=== PATIENT | female | born 1975 | race Caucasian/White ===

== ENCOUNTER 2016-12-21 12:22 | Emergency (ER) | payer OTHER, SELFPAY ==
[~2016-12-21 12:22] MED LIST: Sodium Chloride 0.9% 100 ML BAG ONE
[2016-12-21] MEDS ORDERED: Lorazepam 2 MG/ML VIAL ONE (12:50)
[2016-12-21] MEDS ORDERED: Famotidine In NaCl 20 mg/50 ml Premix Bag ONE (12:50)
[2016-12-21] MEDS ORDERED: Ondansetron HCl/PF 4 MG/2 ML Vial ONE (12:50)
[2016-12-21] MEDS ORDERED: Metoprolol Tartrate 5 MG/5 ML VIAL ONE (12:50)
--- NOTE | 2016-12-21 13:08 | RAD ---
PORTABLE CHEST: Date: 12/21/16 Time: 1236 hours HISTORY: Chest pain. FINDINGS: Comparison made with exam of 07/09/13. The heart size is normal. The lungs are well expanded without focal areas of consolidation, pneumoth orax, or pleural effusions. IMPRESSION: No acute process. POS: [facility]
[2016-12-21 13:09] LABS: Anion Gap 19 mmol/L (10-20); BUN (Urea Nitrogen) 12 mg/dL (7.0-18.7); Calc. Creatinine Clearance 0 mL/min (70-130); Calcium 9.1 mg/dL (7.8-10.44); Carbon Dioxide 20 mmol/L (22-29); Chloride 102 mmol/L (98-107); Estimated GFR-MDRD 75; Glucose 164 mg/dL (70-105); Sodium 137 mmol/L (136-145)
[2016-12-21 13:10] LABS: Hemoglobin 14.3 g/dL (12.0-16.0); Mean Corpuscular HGB CONC 34.5 g/dL (32.0-36.0); Mean Corpuscular Hemoglobin 32.2 pg (27.0-31.0); Mean Corpuscular Volume 93.3 fl (81.0-99.0); Mean Platelet Volume 9.4 fL (7.4-10.4); Platelet Count 317 thou/uL (130-400); Red Blood Cell (RBC) Count 4.43 mill/uL (4.20-5.40); White Blood Cell (WBC) Count 10.4 thou/uL (4.8-10.8)
[2016-12-21 13:12] LABS: Band 2 % (5-11); Lymphocytes 26 % (21-51); Manual Diff?? YES; Monocytes 3 % (0-10); Neutrophil 69 % (42-75)
[2016-12-21 13:13] LABS: MDiff Complete? YES
[2016-12-21 13:19] LABS: CKMB 0.7 ng/mL (0-6.6); Troponin I Less than 0.010 ng/mL (< 0.028)
[2016-12-21 13:31] LABS: Potassium 4.4 mmol/L (3.5-5.1)
[2016-12-21 14:30] LABS: Bilirubin Negative (Negative); Blood, Urine Trace (Negative); Clarity Clear (Clear); Glucose, Urine (Dipstick) Negative (Negative); Leukocyte Trace (Negative); Nitrite Positive (Negative); Protein, Urine (Dipstick) Negative (Neg-Trace); Specific Gravity, Urine 1.025 (1.005-1.030); Urobilinogen 0.2 mg/dL (0.2-1.0); pH, Urine 6.5 (5.0-9.0)
[2016-12-21 14:34] LABS: Bacteria/HPF 1+ HPF (None Seen); Other Microscopic Description C&S SET UP; RBC/HPF 0-3 HPF (0-3); Squamous Epithelial 0-3 HPF (0-3)
[2016-12-21] MEDS ORDERED: cefTRIAXone\\ROCEPHIN 1 GM VIAL ONE (15:30)
[2016-12-21] MEDS ORDERED: Enoxaparin Sodium 60 MG/0.6 ML SYRINGE ONE (16:16)
[2016-12-21] MEDS ORDERED: Enoxaparin Sodium 40 MG/0.4 ML SYRINGE ONE (16:16)
--- NOTE | 2016-12-21 16:59 | ERRECORD ---
[facility] EMERGENCY RECORD HPI CHEST PAIN (12:40 RWAG) CHIEF COMPLAINT: Patient presents for evaluation of chest pain, ongoing. HISTORIAN: History provided by patient. LOCATION: Symptoms are localized, most severe in the left upper chest. QUALITY: Unable to describe the quality of the pain. SEVERITY: Maximum severity of symptoms mild, Currently symptoms are mild. TIME COURSE: Patient unable to describe onset of symptoms, There has been no change in the patient's symptoms over time. ASSOCIATED WITH: No associated symptoms. EXACERBATED BY: Patient's condition exacerbated by nothing. RELIEVED BY: Patient's condition relieved by nothing because patient has not tried anything for relief. RISK FACTORS: Coronary artery disease risk factors, include hypertension, Thoracic aortic dissection risk factors, include hypertension, No pulmonary embolism risk factors. ROS (12:42 RWAG) CONSTITUTIONAL: Negative constitutional review of systems. EYES: Negative eye review of systems. ENT: Negative ears, nose, throat review of systems. CARDIOVASCULAR: Historian reports chest pain. RESPIRATORY: Negative respiratory review of systems. GI: Negative gastrointestinal review of systems. GENITOURINARY FEMALE: Negative genitourinary review of systems. MUSCULOSKELETAL: Negative musculoskeletal review of systems. SKIN: Negative skin review of systems. NEUROLOGIC: Negative neurologic review of systems. ENDOCRINE: Negative endocrine review of systems. HEMO/LYMPHATIC: Normal hematologic/lymphatic system review. ALLERGIC/IMMUNOLOGIC: Normal allergy/immunologic system review. PSYCHIATRIC: Historian reports anxiety. PAST MEDICAL HISTORY (13:08 SFRE) MEDICAL HISTORY: Past medical history includes pulmonary disease, chronic obstructive pulmonary disease, Notes: GRAVES DISEASE. FEMALE SURGICAL HISTORY: Surgical history of section, Notes: X3, Surgical history of tubal ligation. PSYCHIATRIC HISTORY: Notes: ANXIETY PER PATIENT. SOCIAL HISTORY: Patient currently uses tobacco, Patient smokes cigarettes, Patient smokes 1 pack per day, 19 YEARS SMOKING HISTORY Patient denies alcohol use, Patient denies drug use,. KNOWN ALLERGIES No Allergy Information Available (Unconfirmed) &a-1R&a+25V*p+0X*x1568P*c202B*c15G*c2P*p-0X&a-25V&a+1R Name: Ruthie Larios : 1975 F41 MedRec: [id number] AcctNum: [id number] Prepared: SatDec 21, 2016 16:29 by Interface Page 1 of 4 pMD [facility] EMERGENCY RECORD Sulfa (Sulfonamide Antibiotics): - Entered category: Sulfa (Sulfonamide Antibiotics) -- Entered category: Sulfa (Sulfonamide Antibiotics) -- Entered category: Sulfa (Sulfonamide Antibiotics) -- Entered category: Sulfa (Sulfonamide Antibiotics) -- Entered category: Sulfa (Sulfonamide Antibi CURRENT MEDICATIONS (12:28 SFRE) None VITAL SIGNS VITAL SIGNS: BP: 160/83, Pulse: 81, Resp: 24, Temp: 100.5 (Tympanic), Pain: 10 (Sharp), O2 sat: 98 on Room Air, Time: 12/21/2016 12:27. (12:27 SFRE) Pain: 8, Time: 12/21/2016 14:09. (14:09 SFRE) Pain: 8, Time: 12/21/2016 14:09. (14:09 SFRE) Temp: 97.3 (Tympanic), Time: 12/21/2016 14:13. (14:13 SFRE) BP: 130/81, Pulse: 69, Resp: 14, Temp: 97.3 (Tympanic), Pain: 8, O2 sat: 97 on Room Air, Time: 12/21/2016 14:00. (14:00 SFRE) PHYSICAL EXAM (12:43 RWAG) CONSTITUTIONAL: Vital Signs Reviewed, Blood pressure, hypertensive, Respiratory rate, increased. HEAD: Head exam normal. EYES: Eye exam normal. ENT: ENT exam normal. NECK: Neck exam normal. RESPIRATORY CHEST: Respiratory and chest exam normal. CARDIOVASCULAR: Cardiovascular assessment normal. ABDOMEN FEMALE: Abdominal exam normal. BACK: Back exam normal. UPPER EXTREMITY: Upper extremity exam normal. LOWER EXTREMITY: Lower extremity exam normal. NEURO: Neuro exam normal. SKIN: Skin exam normal. LYMPHATIC: Lymphatic exam normal. PSYCHIATRIC: Psychiatric exam included findings of patient oriented to person place and time, Affect, agitated. EKG INTERPRETATION (12:40 RWAG) 12 LEAD EKG INTERPRETATION: 12 lead EKG interpreted by Emergency Department Physician at time of study, 12 lead EKG shows normal sinus rhythm, Rate (beats per minute): 76, with no ectopics, No previous EKG available for comparison, T waves normal, [place] normal, Clinical impression:, non-specific EKG. MEDICATION ADMINISTRATION SUMMARY Drug Name: Lovenox, Dose Ordered: 1 mg/kg, Route: Subcutaneous, &a-1R&a+25V*p+0X*i5111V*c202B*c15G*c2P*p-0X&a-25V&a+1R Name: Ruthie Larios : 1975 F41 MedRec: [id number] AcctNum: [id number] Prepared: SatDec 21, 2016 16:29 by Interface Page 2 of 4 pMD [facility] EMERGENCY RECORD Status: Given, Time: 16:21 12/21/2016, Drug Name: Rocephin intravenous, Dose Ordered: 1 g, Route: IV Piggy Back, Status: Given, Time: 15:35 12/21/2016, Drug Name: morphine injection, Dose Ordered: 4 mg, Route: IV Push, Status: Given, Time: 13:44 12/21/2016, Drug Name: famotidine (PF), Dose Ordered: 20 mg, Route: IV Push, Status: Given, Time: 13:04 12/21/2016, Drug Name: aspirin oral, Dose Ordered: 324 mg, Route: Oral, Status: Given, Time: 13:04 12/21/2016, Drug Name: morphine injection, Dose Ordered: 4 mg, Route: IV Push, Status: Given, Time: 13:03 12/21/2016, Drug Name: ondansetron HCl intravenous, Dose Ordered: 8 mg, Route: IV Push, Status: Given, Time: 13:02 12/21/2016, Drug Name: Ativan injection, Dose Ordered: 1 mg, Route: IV Push, Status: Given, Time: 13:02 12/21/2016, Detailed record available in Medication Service section. DOCTOR NOTES TEXT: Pt's chest pain very atypical and vaugue in location. Pt tearful and anxious, suspect anxiety is a large aspect of her complaint. (15:26 RWAG) repeat EKG shows 1.5mm elevation in inferior leads. Pt chest pain free at present. Two serial troponins have been normal. Will transfer to [facility] for Cardiology consult and r/o OR. (15:56 RWAG) PROBLEM LIST No recorded problems DIAGNOSIS (15:54 RWAG) FINAL: PRIMARY: CHEST PAIN UNSPECIFIED, ADDITIONAL: Anxiety, UTI. PRESCRIPTION (15:25 RWAG) Cipro tablet: TABLET : 500 mg : ORAL : Quantity: 1 Unit: tab(s) Route: ORAL Schedule: every 12 hours Dispense: 14 Unit: tab(s) May substitute. Refills: No Refills . NOTES: No Refills. Ultram: TABLET : 50 mg : ORAL : Quantity: 2 Unit: tab(s) Route: ORAL Schedule: every 6 hours PRN Dispense: 20 Unit: tab(s) May substitute. Refills: No Refills . NOTES: No Refills. DISPOSITION PATIENT: Disposition Type: Discharge, Disposition: *Discharge Home, Disposition Transport: Car, Condition: Improved. (15:28 RWAG) Disposition Type: Transfer, Disposition: Transfer to [facility]. (15:54 RWAG) Patient left the department. (16:27 SFRE) Mims: &a-1R&a+25V*p+0X*b6686V*c202B*c15G*c2P*p-0X&a-25V&a+1R Name: Ruthie Larios : 1975 F41 MedRec: [id number] AcctNum: [id number] Prepared: SatDec 21, 2016 16:29 by Interface Page 3 of 4 pMD [facility] EMERGENCY RECORD RWAG=MD Micha, Noel SFRE=IRA Larose, Carmina &a-1R&a+25V*p+0X*k3357W*c202B*c15G*c2P*p-0X&a-25V&a+1R Name: Ruthie Larios : 1975 F41 MedRec: [id number] AcctNum: [id number] Prepared: SatDec 21, 2016 16:29 by Interface Page 4 of 4 pMD MTDD
--- NOTE | 2016-12-21 17:02 | ERRECORD ---
[facility] EMERGENCY RECORD HPI CHEST PAIN (12:40 RWAG) CHIEF COMPLAINT: Patient presents for evaluation of chest pain, ongoing. HISTORIAN: History provided by patient. LOCATION: Symptoms are localized, most severe in the left upper chest. QUALITY: Unable to describe the quality of the pain. SEVERITY: Maximum severity of symptoms mild, Currently symptoms are mild. TIME COURSE: Patient unable to describe onset of symptoms, There has been no change in the patient's symptoms over time. ASSOCIATED WITH: No associated symptoms. EXACERBATED BY: Patient's condition exacerbated by nothing. RELIEVED BY: Patient's condition relieved by nothing because patient has not tried anything for relief. RISK FACTORS: Coronary artery disease risk factors, include hypertension, Thoracic aortic dissection risk factors, include hypertension, No pulmonary embolism risk factors. ROS (12:42 RWAG) CONSTITUTIONAL: Negative constitutional review of systems. EYES: Negative eye review of systems. ENT: Negative ears, nose, throat review of systems. CARDIOVASCULAR: Historian reports chest pain. RESPIRATORY: Negative respiratory review of systems. GI: Negative gastrointestinal review of systems. GENITOURINARY FEMALE: Negative genitourinary review of systems. MUSCULOSKELETAL: Negative musculoskeletal review of systems. SKIN: Negative skin review of systems. NEUROLOGIC: Negative neurologic review of systems. ENDOCRINE: Negative endocrine review of systems. HEMO/LYMPHATIC: Normal hematologic/lymphatic system review. ALLERGIC/IMMUNOLOGIC: Normal allergy/immunologic system review. PSYCHIATRIC: Historian reports anxiety. PAST MEDICAL HISTORY (13:08 SFRE) MEDICAL HISTORY: Past medical history includes pulmonary disease, chronic obstructive pulmonary disease, Notes: GRAVES DISEASE. FEMALE SURGICAL HISTORY: Surgical history of section, Notes: X3, Surgical history of tubal ligation. PSYCHIATRIC HISTORY: Notes: ANXIETY PER PATIENT. SOCIAL HISTORY: Patient currently uses tobacco, Patient smokes cigarettes, Patient smokes 1 pack per day, 19 YEARS SMOKING HISTORY Patient denies alcohol use, Patient denies drug use,. KNOWN ALLERGIES No Allergy Information Available (Unconfirmed) &a-1R&a+25V*p+0X*v4332Z*c202B*c15G*c2P*p-0X&a-25V&a+1R Name: Ruthie Larios : 1975 F41 MedRec: [id number] AcctNum: [id number] Prepared: SatDec 21, 2016 17:29 by Interface Page 1 of 4 pMD [facility] EMERGENCY RECORD Sulfa (Sulfonamide Antibiotics): - Entered category: Sulfa (Sulfonamide Antibiotics) -- Entered category: Sulfa (Sulfonamide Antibiotics) -- Entered category: Sulfa (Sulfonamide Antibiotics) -- Entered category: Sulfa (Sulfonamide Antibiotics) -- Entered category: Sulfa (Sulfonamide Antibi CURRENT MEDICATIONS (12:28 SFRE) None VITAL SIGNS VITAL SIGNS: BP: 160/83, Pulse: 81, Resp: 24, Temp: 100.5 (Tympanic), Pain: 10 (Sharp), O2 sat: 98 on Room Air, Time: 12/21/2016 12:27. (12:27 SFRE) Pain: 8, Time: 12/21/2016 14:09. (14:09 SFRE) Pain: 8, Time: 12/21/2016 14:09. (14:09 SFRE) Temp: 97.3 (Tympanic), Time: 12/21/2016 14:13. (14:13 SFRE) BP: 130/81, Pulse: 69, Resp: 14, Temp: 97.3 (Tympanic), Pain: 8, O2 sat: 97 on Room Air, Time: 12/21/2016 14:00. (14:00 SFRE) PHYSICAL EXAM (12:43 RWAG) CONSTITUTIONAL: Vital Signs Reviewed, Blood pressure, hypertensive, Respiratory rate, increased. HEAD: Head exam normal. EYES: Eye exam normal. ENT: ENT exam normal. NECK: Neck exam normal. RESPIRATORY CHEST: Respiratory and chest exam normal. CARDIOVASCULAR: Cardiovascular assessment normal. ABDOMEN FEMALE: Abdominal exam normal. BACK: Back exam normal. UPPER EXTREMITY: Upper extremity exam normal. LOWER EXTREMITY: Lower extremity exam normal. NEURO: Neuro exam normal. SKIN: Skin exam normal. LYMPHATIC: Lymphatic exam normal. PSYCHIATRIC: Psychiatric exam included findings of patient oriented to person place and time, Affect, agitated. EKG INTERPRETATION (12:40 RWAG) 12 LEAD EKG INTERPRETATION: 12 lead EKG interpreted by Emergency Department Physician at time of study, 12 lead EKG shows normal sinus rhythm, Rate (beats per minute): 76, with no ectopics, No previous EKG available for comparison, T waves normal, [place] normal, Clinical impression:, non-specific EKG. MEDICATION ADMINISTRATION SUMMARY Drug Name: Lovenox, Dose Ordered: 1 mg/kg, Route: Subcutaneous, &a-1R&a+25V*p+0X*y6333G*c202B*c15G*c2P*p-0X&a-25V&a+1R Name: Ruthie Larios : 1975 F41 MedRec: [id number] AcctNum: [id number] Prepared: SatDec 21, 2016 17:29 by Interface Page 2 of 4 pMD [facility] EMERGENCY RECORD Status: Given, Time: 16:21 12/21/2016, Drug Name: Rocephin intravenous, Dose Ordered: 1 g, Route: IV Piggy Back, Status: Given, Time: 15:35 12/21/2016, Drug Name: morphine injection, Dose Ordered: 4 mg, Route: IV Push, Status: Given, Time: 13:44 12/21/2016, Drug Name: famotidine (PF), Dose Ordered: 20 mg, Route: IV Push, Status: Given, Time: 13:04 12/21/2016, Drug Name: aspirin oral, Dose Ordered: 324 mg, Route: Oral, Status: Given, Time: 13:04 12/21/2016, Drug Name: morphine injection, Dose Ordered: 4 mg, Route: IV Push, Status: Given, Time: 13:03 12/21/2016, Drug Name: ondansetron HCl intravenous, Dose Ordered: 8 mg, Route: IV Push, Status: Given, Time: 13:02 12/21/2016, Drug Name: Ativan injection, Dose Ordered: 1 mg, Route: IV Push, Status: Given, Time: 13:02 12/21/2016, Detailed record available in Medication Service section. DOCTOR NOTES TEXT: Pt's chest pain very atypical and vaugue in location. Pt tearful and anxious, suspect anxiety is a large aspect of her complaint. (15:26 RWAG) repeat EKG shows 1.5mm elevation in inferior leads. Pt chest pain free at present. Two serial troponins have been normal. Will transfer to [facility] for Cardiology consult and r/o PA. (15:56 RWAG) PROBLEM LIST No recorded problems DIAGNOSIS (15:54 RWAG) FINAL: PRIMARY: CHEST PAIN UNSPECIFIED, ADDITIONAL: Anxiety, UTI. PRESCRIPTION (15:25 RWAG) Cipro tablet: TABLET : 500 mg : ORAL : Quantity: 1 Unit: tab(s) Route: ORAL Schedule: every 12 hours Dispense: 14 Unit: tab(s) May substitute. Refills: No Refills . NOTES: No Refills. Ultram: TABLET : 50 mg : ORAL : Quantity: 2 Unit: tab(s) Route: ORAL Schedule: every 6 hours PRN Dispense: 20 Unit: tab(s) May substitute. Refills: No Refills . NOTES: No Refills. DISPOSITION PATIENT: Disposition Type: Discharge, Disposition: *Discharge Home, Disposition Transport: Car, Condition: Improved. (15:28 RWAG) Disposition Type: Transfer, Disposition: Transfer to [facility]. (15:54 RWAG) Patient left the department. (16:27 SFRE) Mims: &a-1R&a+25V*p+0X*d3726W*c202B*c15G*c2P*p-0X&a-25V&a+1R Name: Ruthie Larios : 1975 F41 MedRec: [id number] AcctNum: [id number] Prepared: SatDec 21, 2016 17:29 by Interface Page 3 of 4 pMD [facility] EMERGENCY RECORD RWAG=MD Micha, Noel SFRE=IRA Larose, Carmina &a-1R&a+25V*p+0X*o3505R*c202B*c15G*c2P*p-0X&a-25V&a+1R Name: Ruthie Larios : 1975 F41 MedRec: [id number] AcctNum: [id number] Prepared: SatDec 21, 2016 17:29 by Interface Page 4 of 4 pMD MTDD
--- NOTE | 2016-12-21 17:05 | PICIS ---
[facility] EMERGENCY RECORD COMMUNICATIONS COMMUNICATIONS: Notes: DR MUSE CONSULTED DR ROONEY BY PHONE. RECCOMENDATIONS GIVEN FOR LOVENOX THEN TRANSFER TO [facility] ER. (16:03 AWAT) Notes: DR VALLEJO AT [facility] ER ACCEPTS PT FOR TRANSFER NOW. (16:07 AWAT) TRIAGE (12:28 SFRE) TRIAGE NOTES: CHEST PAIN. (12:28 SFRE) PATIENT: NAME: Ruthie Larios, AGE: 41, GENDER: female, : Sat1975, TIME OF GREET: SatDec 21, 2016 12:23, PREFERRED LANGUAGE: Lao, ETHNICITY: Not or , FALL RISK: NO, ECODE BILLING MAP: [facility], SSN: [id number], Zip Code: [address], KG WEIGHT: [phone], PHONE: , , , PERSON ID: [id number], PCP: NO PCP. (12:28 SFRE) COMPLAINT: HIGH RISK COMPLAINT: CHEST PAIN. (12:28 SFRE) ADMISSION: URGENCY: 3 Urgent, ADMISSION SOURCE: Home, TRANSPORT: Walk-in, BED: ED -05. (12:28 SFRE) ASSESSMENT: Symptoms began 12/21/2016 0900, Symptoms began 4 hours ago. (13:08 SFRE) PAIN: Patient complains of pain described as, sharp, Location LEFT CHEST, Pain is constant, Onset was 0900, No aggravating factors, No relieving factors, Notes: PATIENT STATES SHE TOOK 1/4 OF 325 ASA. (13:08 SFRE) IMMUNIZATIONS: Flu vaccine not up to date. (13:08 SFRE) SIRS SCORING: Heart Rate 55-109 (0), Temp range 96.8-101.1 (0), respiratory rate 12-24 (0), Mental Status altered: no (0). (13:08 SFRE) TRIAGE SCREENING: Patient denies suicidal ideation, Patient denies presence of domestic violence. (13:08 SFRE) PROVIDERS: TRIAGE NURSE: Carmina Larose RN. (12:28 SFRE) PREVIOUS VISIT ALLERGIES: Sulfa (Sulfonamide Antibiotics). (12:28 SFRE) Sulfa (Sulfonamide Antibiotics). (13:08 SFRE) KNOWN ALLERGIES No Allergy Information Available (Unconfirmed) Sulfa (Sulfonamide Antibiotics): - Entered category: Sulfa (Sulfonamide Antibiotics) -- Entered category: Sulfa (Sulfonamide Antibiotics) -- Entered category: Sulfa (Sulfonamide Antibiotics) -- Entered category: Sulfa (Sulfonamide Antibiotics) -- Entered category: Sulfa (Sulfonamide Antibi CURRENT MEDICATIONS (12:28 SFRE) None VITAL SIGNS VITAL SIGNS: BP: 160/83, Pulse: 81, Resp: 24, Temp: 100.5 &a-1R&a+25V*p+0X*y5065N*c202B*c15G*c2P*p-0X&a-25V&a+1R Name: Ruthie Larios : 1975 F41 MedRec: [id number] AcctNum: [id number] Prepared: SatDec 21, 2016 17:35 by Interface Page 1 of 14 pMD [facility] EMERGENCY RECORD (Tympanic), Pain: 10 (Sharp), O2 sat: 98 on Room Air, Time: 12/21/2016 12:27. (12:27 SFRE) Pain: 8, Time: 12/21/2016 14:09. (14:09 SFRE) Pain: 8, Time: 12/21/2016 14:09. (14:09 SFRE) Temp: 97.3 (Tympanic), Time: 12/21/2016 14:13. (14:13 SFRE) BP: 130/81, Pulse: 69, Resp: 14, Temp: 97.3 (Tympanic), Pain: 8, O2 sat: 97 on Room Air, Time: 12/21/2016 14:00. (14:00 SFRE) NURSING ASSESSMENT: CARDIOVASCULAR (12:28 SFRE) CONSTITUTIONAL: Patient arrives ambulatory, Gait steady, History obtained from patient, Patient appears, anxious, in distress due to pain, Patient cooperative, Patient alert, Oriented to person, place and time, Skin warm, Skin dry, Skin normal in color, Mucous membranes pink, Mucous membranes moist, Patient is well-groomed, Patient complains of CHEST PAIN. PAIN: sharp pain, to the left chest, Pain radiates, to the left arm, to the left side of jaw, on a scale 0-10 patient rates pain as 10, Pain exacerbated by nothing, Nothing has been tried to alleviate the pain. CARDIOVASCULAR: Cardiovascular assessment findings include heart rate normal, Heart rhythm normal sinus, Associated with dyspnea, with exertion. RESPIRATORY/CHEST: Breath sounds clear, Respiratory assessment findings include respiratory effort easy, Respirations regular, Conversing normally, Neck and chest exam findings include trachea midline, Chest expansion equal, Chest movement symmetrical, no associated cough noted, no associated fever. SAFETY: Side rails up, Cart/Stretcher in lowest position, Call light within reach, Hospital ID band on. NURSING PROCEDURE: BEDSIDE RADIOLOGY (12:[address] [facility]) PATIENT IDENTIFIER: Patient actively involved in identification process, Patient's identity verified by patient stating name, Patient's identity verified by patient stating date. BEDSIDE RADIOLOGY: Portable chest x-ray performed. NOTES: Patient tolerated procedure well. SAFETY: Side rails up, Cart/Stretcher in lowest position, Family at bedside, Call light within reach, Hospital ID band on. NURSING PROCEDURE: CROP AND SOIL TECHNICIAN (12:28 [facility]) CROP AND SOIL TECHNICIAN: Cardiac monitoring indicated for complaint of chest pain, Patient placed on pan dumper, Heart rate: 81, showing normal sinus rhythm, Patient placed on non-invasive blood pressure monitor, Patient placed on continuous pulse oximetry, Adult/pediatric oxisensor applied, Oxygen saturation 98%. NURSING PROCEDURE: EKG CHART (12:[address] [facility]) PATIENT IDENTIFIER: Patient actively involved in identification &a-1R&a+25V*p+0X*j9246C*c202B*c15G*c2P*p-0X&a-25V&a+1R Name: Ruthie Larios : 1975 F41 MedRec: [id number] AcctNum: [id number] Prepared: SatDec 21, 2016 17:35 by Interface Page 2 of 14 pMD [facility] EMERGENCY RECORD process, Patient's identity verified by patient stating name, Patient's identity verified by patient stating date. EKG: EKG indicated for complaint of chest pain, 12 lead EKG performed on the left chest, done by NAS ROTH, first EKG. FOLLOW-UP: After procedure, EKG for interpretation given to Dr. MUSE. NOTES: Patient tolerated procedure well. SAFETY: Side rails up, Cart/Stretcher in lowest position, Family at bedside, Call light within reach, Hospital ID band on. NURSING PROCEDURE: IV (12:30 SFRE) IV SITE 1: IV therapy indicated for hydration, IV therapy indicated for medication administration, IV established, to the left hand, using a 20 gauge catheter, in one attempt, Saline lock established, Flushed with normal saline (mls): 5CC, Labs drawn at time of placement, labeled in the presence of the patient and sent to lab. NURSING PROCEDURE: NURSE NOTES NURSES NOTES: Patient is improving, Patient in no apparent distress, Patient resting quietly, Notes: REPORTS PAIN IS 8/[address] MUSE INFORMED AND NEW ORDERS REC'D FOR 4MG MORPHINE IVP. (13:40 SFRE) Patient in no apparent distress, Patient states decreased pain, Patient resting quietly, Notes: PATIENT APPEARS TO BE IN NO APPARENT DISTRESS, BUT STATES HER PAIN IS STILL 8/10. ALSO REPORTS PAIN HAS MOVED FROM LEFT CHEST TO UNDERNEATH RIGHT BREAST AND MATTHEW NECK. (14:03 SFRE) Patient assisted to bathroom with steady gait. (14:13 SFRE) NURSING PROCEDURE: TRANSFER (16:22 SFRE) TRANSFER: Reason for transfer need for specialized care, Diagnosis: CP/RO, Accepting institution: [facility], Accepting physician: CONY, Referring physician: MCIHA, Transported by urgent ambulance, accompanied by emergency medical services personnel, Report called to receiving facility, [facility], Summary of Care printed, Copy of patient record prepared for receiving facility, Medication reconciliation form prepared and sent to receiving facility, Patient consent for transfer signed, Family member contacted, BY SELF. SAFETY: Side rails up, Cart/Stretcher in lowest position, Family at bedside, Call light within reach, Hospital ID band on. NURSING PROCEDURE: URINE COLLECTION (14:15 SFRE) URINE COLLECTION FEMALE: Urine collected by mid-stream clean catch. ORDER DETAILS Order Name: B type Natriuretic Peptide, Status: Active, Time: 12:37 &a-1R&a+25V*p+0X*o5838B*c202B*c15G*c2P*p-0X&a-25V&a+1R Name: Ruthie Larios : 1975 F41 MedRec: [id number] AcctNum: [id number] Prepared: SatDec 21, 2016 17:35 by Interface Page 3 of 14 pMD [facility] EMERGENCY RECORD 12/21/2016, User: NYASIA, - Ordered for: MD Muse Richard, - Entered by: MD Muse Richard - SatDec 21, 2016 12:37, - Quantity: 1, Order Name: Basic Metabolic Panel, Status: Active, Time: 12:37 12/21/2016, User: NYASIA, - Ordered for: MD Muse Richard, - Entered by: MD Muse Richard - SatDec 21, 2016 12:37, - Quantity: 1, Order Name: Cardiac Profile w/CKMB & Troponin - I, Status: Active, Time: 12:37 12/21/2016, User: NYASIA, - Ordered for: MD Muse Richard, - Entered by: MD Muse Richard - SatDec 21, 2016 12:37, - Quantity: 1, Order Name: CBC with Differential, Status: Active, Time: 12:37 12/21/2016, User: NYASIA, - Ordered for: MD Muse Richard, - Entered by: MD Muse Richard - SatDec 21, 2016 12:37, - Quantity: 1, Order Name: Culture, Urine, Status: Active, Time: 13:10 12/21/2016, User: NYASIA, - Ordered for: MD Muse Richard, - Entered by: MD Muse Richard - SatDec 21, 2016 13:10, - Quantity: 1, Order Name: D-Dimer (Quantitative), Status: Active, Time: 12:37 12/21/2016, User: NYASIA, - Ordered for: MD Muse Richard, - Entered by: MD Muse Richard - SatDec 21, 2016 12:37, - Quantity: 1, Order Name: EKG 12 Lead in Emergency Room, Status: Active, Time: 12:37 12/21/2016, User: NYASIA, - Ordered for: MD Muse Richard, - Entered by: MD Muse Richard - SatDec 21, 2016 12:37, - Quantity: 1, Order Name: EKG 12 Lead in Emergency Room, Status: Active, Time: 14:24 12/21/2016, User: NYASIA, - Ordered for: MD Muse Richard, - Entered by: MD Muse Richard - SatDec 21, 2016 14:24, - Quantity: 1, Order Name: SALINE LOCK, Status: Done, Time: 12:40 12/21/2016, User: FRANCISCO, - Ordered for: MD Muse Richard, - Entered by: MD Muse Richard - SatDec 21, 2016 12:37, - Quantity: 1, Order Name: Troponin - I, Status: Active, Time: 14:41 12/21/2016, User: NYASIA, - Ordered for: MD Muse Richard, - Entered by: MD Muse Richard - SatDec 21, 2016 14:41, - Quantity: 1, Order Name: Urinalysis w/ Rflx Microscopic, Status: Active, Time: &a-1R&a+25V*p+0X*b5847R*c202B*c15G*c2P*p-0X&a-25V&a+1R Name: Ruthie Larios : 1975 F41 MedRec: [id number] AcctNum: [id number] Prepared: SatDec 21, 2016 17:35 by Interface Page 4 of 14 pMD [facility] EMERGENCY RECORD 13:10 12/21/2016, User: NYASIA, - Ordered for: MD Muse Richard, - Entered by: MD Muse Richard - SatDec 21, 2016 13:10, - Quantity: 1, Order Name: XR Chest 1 View Portable, Status: Active, Time: 12:37 12/21/2016, User: NYASIA, - Ordered for: MD Muse Richard, - Entered by: MD Muse Richard - SatDec 21, 2016 12:37, - Quantity: 1. MEDICATION ADMINISTRATION SUMMARY Drug Name: Lovenox, Dose Ordered: 1 mg/kg, Route: Subcutaneous, Status: Given, Time: 16:21 12/21/2016, Drug Name: Rocephin intravenous, Dose Ordered: 1 g, Route: IV Piggy Back, Status: Given, Time: 15:35 12/21/2016, Drug Name: morphine injection, Dose Ordered: 4 mg, Route: IV Push, Status: Given, Time: 13:44 12/21/2016, Drug Name: famotidine (PF), Dose Ordered: 20 mg, Route: IV Push, Status: Given, Time: 13:04 12/21/2016, Drug Name: aspirin oral, Dose Ordered: 324 mg, Route: Oral, Status: Given, Time: 13:04 12/21/2016, Drug Name: morphine injection, Dose Ordered: 4 mg, Route: IV Push, Status: Given, Time: 13:03 12/21/2016, Drug Name: ondansetron HCl intravenous, Dose Ordered: 8 mg, Route: IV Push, Status: Given, Time: 13:02 12/21/2016, Drug Name: Ativan injection, Dose Ordered: 1 mg, Route: IV Push, Status: Given, Time: 13:02 12/21/2016, Detailed record available in Medication Service section. MEDICATION SERVICE aspirin oral: Order: aspirin oral (aspirin) - Dose: 324 mg : Oral Schedule: Now Ordered by: Noel Muse MD Entered by: Noel Muse MD SatDec 21, 2016 12:38 , Acknowledged by: Carmina Larose RN SatDec 21, 2016 12:48 Documented as given by: Carmina Larose RN SatDec 21, 2016 13:04 Patient, Medication, Dose, Route and Time verified prior to administration. Amount given: 324MG, Site: Medication administered P.O., Correct patient, time, route, dose and medication confirmed prior to administration, Patient advised of actions and side-effects prior to administration, Allergies confirmed and medications reviewed prior to administration, Patient in position of comfort, Side rails up, Cart in lowest position, Family at bedside. Ativan injection: Order: Ativan injection (lorazepam) - Dose: 1 mg : IV Push Schedule: Now Ordered by: Noel Muse MD &a-1R&a+25V*p+0X*l3917G*c202B*c15G*c2P*p-0X&a-25V&a+1R Name: Ruthie Larios : 1975 F41 MedRec: [id number] AcctNum: [id number] Prepared: SatDec 21, 2016 17:35 by Interface Page 5 of 14 pMD [facility] EMERGENCY RECORD Entered by: Noel Muse MD SatDec 21, 2016 12:45 , Acknowledged by: Carmina Larose RN SatDec 21, 2016 12:48 Documented as given by: Carmina Larose RN SatDec 21, 2016 13:02 Patient, Medication, Dose, Route and Time verified prior to administration. Amount given: 1MG, IV SITE #1 IVPB or drip, Awake and alert- acceptable, Catheter placement confirmed via flush prior to administration, IV site without signs or symptoms of infiltration during medication administration, No swelling during administration, No drainage during administration, IV flushed after administration, Correct patient, time, route, dose and medication confirmed prior to administration, Patient advised of actions and side-effects prior to administration, Allergies confirmed and medications reviewed prior to administration, Patient in position of comfort, Side rails up, Cart in lowest position, Family at bedside. famotidine (PF): Order: famotidine (PF) (famotidine/preservative free) - Dose: 20 mg : IV Push Schedule: Now Ordered by: Noel Muse MD Entered by: Noel Muse MD SatDec 21, 2016 12:39 , Acknowledged by: Carmina Larose RN SatDec 21, 2016 12:48 Documented as given by: Carmina Larose RN SatDec 21, 2016 13:04 Patient, Medication, Dose, Route and Time verified prior to administration. Amount given: 20MG, IV SITE #1 IVPB or drip, initial infusion, Premixed, Awake and alert- acceptable, Catheter placement confirmed via flush prior to administration, IV site without signs or symptoms of infiltration during medication administration, No swelling during administration, No drainage during administration, IV flushed after administration, Correct patient, time, route, dose and medication confirmed prior to administration, Patient advised of actions and side-effects prior to administration, Allergies confirmed and medications reviewed prior to administration, Patient in position of comfort, Side rails up, Cart in lowest position, Family at bedside. : Follow Up : Response assessment performed, No signs or symptoms of allergic reaction noted, _IV SITE #1:_, Medication infusion discontinued, on SatDec 21, 2016 13:30, 30 minutes, ., Total amount infused: 20MG, IV Line flushed after administration. (13:04 SFRE) Lovenox: Order: Lovenox (enoxaparin sodium) - Dose: 1 mg/kg : Subcutaneous Schedule: Now Ordered by: Noel Muse MD Entered by: Noel Muse MD SatDec 21, 2016 16:16 , Co-signed by: Melissa Little RN SatDec 21, 2016 16:17 Documented as given by: Carmina Larose RN SatDec 21, 2016 16:21 Patient, Medication, Dose, Route and Time verified prior to administration. Amount given: 100MG, Medication administered to left abdomen, Correct patient, time, route, dose and medication confirmed prior to &a-1R&a+25V*p+0X*k0902F*c202B*c15G*c2P*p-0X&a-25V&a+1R Name: Ruthie Larios : 1975 F41 MedRec: [id number] AcctNum: [id number] Prepared: SatDec 21, 2016 17:35 by Interface Page 6 of 14 pMD [facility] EMERGENCY RECORD administration, Patient advised of actions and side-effects prior to administration, Allergies confirmed and medications reviewed prior to administration, Advised not to ambulate without assistance, Patient in position of comfort, Side rails up, Cart in lowest position, Family at bedside. morphine injection: Order: morphine injection (morphine sulfate) - Dose: 4 mg : IV Push Schedule: Now Ordered by: Noel Muse MD Entered by: Noel Muse MD SatDec 21, 2016 12:38 , Acknowledged by: Carmina Larose RN SatDec 21, 2016 12:48 Documented as given by: Carmina Larose RN SatDec 21, 2016 13:03 Patient, Medication, Dose, Route and Time verified prior to administration. Amount given: 4MG, IV SITE #1 IVP, subsequent different medication, Awake and alert- acceptable, Catheter placement confirmed via flush prior to administration, IV site without signs or symptoms of infiltration during medication administration, No swelling during administration, No drainage during administration, IV flushed after administration, Correct patient, time, route, dose and medication confirmed prior to administration, Patient advised of actions and side-effects prior to administration, Allergies confirmed and medications reviewed prior to administration, Patient in position of comfort, Side rails up, Cart in lowest position, Family at bedside. morphine injection: Response assessment performed, No signs or symptoms of allergic reaction noted, Decreased pain, _IV SITE #1:_, Pain: 8. (14:09 SFRE) morphine injection: Order: morphine injection (morphine sulfate) - Dose: 4 mg : IV Push Ordered by: Noel Muse MD Entered by: Noel Muse MD SatDec 21, 2016 13:41 Documented as given by: Carmina Larose RN SatDec 21, 2016 13:44 Patient, Medication, Dose, Route and Time verified prior to administration. Amount given: 4MG, IV SITE #1 IVP, repeat same medication, Slowly, Awake and alert- acceptable, Catheter placement confirmed via flush prior to administration, IV site without signs or symptoms of infiltration during medication administration, No swelling during administration, No drainage during administration, IV flushed after administration, Correct patient, time, route, dose and medication confirmed prior to administration, Patient advised of actions and side-effects prior to administration, Allergies confirmed and medications reviewed prior to administration, Patient in position of comfort, Side rails up, Cart in lowest position, Family at bedside. morphine injection: Response assessment performed, No signs or symptoms of allergic reaction noted, No change in pain, _IV SITE #1:_, NAD NOTED. RESTING QUIETLY, Pain: 8. (14:09 SFRE) ondansetron HCl intravenous: Order: ondansetron HCl intravenous (ondansetron HCl) - Dose: 8 mg : IV Push Schedule: Now &a-1R&a+25V*p+0X*k5490B*c202B*c15G*c2P*p-0X&a-25V&a+1R Name: Ruthie Larios : 1975 F41 MedRec: [id number] AcctNum: [id number] Prepared: SatDec 21, 2016 17:35 by Interface Page 7 of 14 pMD [facility] EMERGENCY RECORD Ordered by: Noel Muse MD Entered by: Noel Muse MD SatDec 21, 2016 12:39 , Acknowledged by: Carmina Larose RN SatDec 21, 2016 12:48 Documented as given by: Carmina Larose RN SatDec 21, 2016 13:02 Patient, Medication, Dose, Route and Time verified prior to administration. Amount given: 8MG, IV SITE #1 IVP, subsequent different medication, Slowly, Awake and alert- acceptable, Catheter placement confirmed via flush prior to administration, IV site without signs or symptoms of infiltration during medication administration, No swelling during administration, No drainage during administration, IV flushed after administration, Correct patient, time, route, dose and medication confirmed prior to administration, Patient advised of actions and side-effects prior to administration, Allergies confirmed and medications reviewed prior to administration, Patient in position of comfort, Side rails up, Cart in lowest position, Family at bedside. Rocephin intravenous: Order: Rocephin intravenous (ceftriaxone sodium) - Dose: 1 g : IV Piggy Back Schedule: Now Ordered by: Noel Muse MD Entered by: Noel Muse MD SatDec 21, 2016 14:38 , Acknowledged by: Carmina Larose RN SatDec 21, 2016 14:51 Documented as given by: Carmina Larose RN SatDec 21, 2016 15:35 Patient, Medication, Dose, Route and Time verified prior to administration. Amount given: 1G, IV SITE #1 IVPB or drip, subsequent infusion, IVPB mixed in: 100ml, Fluid: 0.9NS, on an IV pump, Awake and alert- acceptable, Catheter placement confirmed via flush prior to administration, IV site without signs or symptoms of infiltration during medication administration, No swelling during administration, No drainage during administration, IV flushed after administration, Correct patient, time, route, dose and medication confirmed prior to administration, Patient advised of actions and side-effects prior to administration, Allergies confirmed and medications reviewed prior to administration, Patient in position of comfort, Side rails up, Cart in lowest position, Family at bedside. : Follow Up : Response assessment performed, No signs or symptoms of allergic reaction noted, _IV SITE #1:_, Medication infusion discontinued, on SatDec 21, 2016 16:07, 35 minutes, ., Total amount infused: 100ML, Advised not to ambulate without assistance, Patient in position of comfort, Side rails up, Cart in lowest position, Family at bedside. (16:[address] [facility]) HPI CHEST PAIN (12:40 [facility]) CHIEF COMPLAINT: Patient presents for evaluation of chest pain, ongoing. HISTORIAN: History provided by patient. LOCATION: Symptoms are localized, most severe in the left upper chest. QUALITY: Unable to describe the quality of the pain. &a-1R&a+25V*p+0X*h0041A*c202B*c15G*c2P*p-0X&a-25V&a+1R Name: Victoria aLriosdonte Galvin : 1975 F41 MedRec: [id number] AcctNum: [id number] Prepared: SatDec 21, 2016 17:35 by Interface Page 8 of 14 pMD [facility] EMERGENCY RECORD SEVERITY: Maximum severity of symptoms mild, Currently symptoms are mild. TIME COURSE: Patient unable to describe onset of symptoms, There has been no change in the patient's symptoms over time. ASSOCIATED WITH: No associated symptoms. EXACERBATED BY: Patient's condition exacerbated by nothing. RELIEVED BY: Patient's condition relieved by nothing because patient has not tried anything for relief. RISK FACTORS: Coronary artery disease risk factors, include hypertension, Thoracic aortic dissection risk factors, include hypertension, No pulmonary embolism risk factors. ROS (12:42 [facility]) CONSTITUTIONAL: Negative constitutional review of systems. EYES: Negative eye review of systems. ENT: Negative ears, nose, throat review of systems. CARDIOVASCULAR: Historian reports chest pain. RESPIRATORY: Negative respiratory review of systems. GI: Negative gastrointestinal review of systems. GENITOURINARY FEMALE: Negative genitourinary review of systems. MUSCULOSKELETAL: Negative musculoskeletal review of systems. SKIN: Negative skin review of systems. NEUROLOGIC: Negative neurologic review of systems. ENDOCRINE: Negative endocrine review of systems. HEMO/LYMPHATIC: Normal hematologic/lymphatic system review. ALLERGIC/IMMUNOLOGIC: Normal allergy/immunologic system review. PSYCHIATRIC: Historian reports anxiety. PAST MEDICAL HISTORY (13:08 [facility]RE) MEDICAL HISTORY: Past medical history includes pulmonary disease, chronic obstructive pulmonary disease, Notes: GRAVES DISEASE. FEMALE SURGICAL HISTORY: Surgical history of section, Notes: X3, Surgical history of tubal ligation. PSYCHIATRIC HISTORY: Notes: ANXIETY PER PATIENT. SOCIAL HISTORY: Patient currently uses tobacco, Patient smokes cigarettes, Patient smokes 1 pack per day, 19 YEARS SMOKING HISTORY Patient denies alcohol use, Patient denies drug use,. PHYSICAL EXAM (12:43 [facility]) CONSTITUTIONAL: Vital Signs Reviewed, Blood pressure, hypertensive, Respiratory rate, increased. HEAD: Head exam normal. EYES: Eye exam normal. ENT: ENT exam normal. NECK: Neck exam normal. RESPIRATORY CHEST: Respiratory and chest exam normal. &a-1R&a+25V*p+0X*l9861X*c202B*c15G*c2P*p-0X&a-25V&a+1R Name: Ruthie Larios : 1975 F41 MedRec: [id number] AcctNum: [id number] Prepared: SatDec 21, 2016 17:35 by Interface Page 9 of 14 pMD [facility] EMERGENCY RECORD CARDIOVASCULAR: Cardiovascular assessment normal. ABDOMEN FEMALE: Abdominal exam normal. BACK: Back exam normal. UPPER EXTREMITY: Upper extremity exam normal. LOWER EXTREMITY: Lower extremity exam normal. NEURO: Neuro exam normal. SKIN: Skin exam normal. LYMPHATIC: Lymphatic exam normal. PSYCHIATRIC: Psychiatric exam included findings of patient oriented to person place and time, Affect, agitated. EVENTS TRANSFER: Triage to Emergency Main ED -05. (SatDec 21, 2016 12:28 [facility]) Removed from Emergency Main ED -05. (16:27 SFRE) EKG INTERPRETATION (12:40 [facility]) 12 LEAD EKG INTERPRETATION: 12 lead EKG interpreted by Emergency Department Physician at time of study, 12 lead EKG shows normal sinus rhythm, Rate (beats per minute): 76, with no ectopics, No previous EKG available for comparison, T waves normal, [place] normal, Clinical impression:, non-specific EKG. DOCTOR NOTES TEXT: Pt's chest pain very atypical and vaugue in location. Pt tearful and anxious, suspect anxiety is a large aspect of her complaint. (15:26 RWAG) repeat EKG shows 1.5mm elevation in inferior leads. Pt chest pain free at present. Two serial troponins have been normal. Will transfer to [facility] for Cardiology consult and r/o ME. (15:56 RWAG) PROBLEM LIST No recorded problems DIAGNOSIS (15:54 RWAG) FINAL: PRIMARY: CHEST PAIN UNSPECIFIED, ADDITIONAL: Anxiety, UTI. DISPOSITION PATIENT: Disposition Type: Discharge, Disposition: *Discharge Home, Disposition Transport: Car, Condition: Improved. (15:28 RWAG) Disposition Type: Transfer, Disposition: Transfer to [facility]. (15:54 RWAG) Patient left the department. (16:27 SFRE) INSTRUCTION (15:29 RWAG) DISCHARGE: UTI CYSTITIS FEMALE ADULT. FOLLOWUP: Follow up with Primary Care Physician in 2-3 days. SPECIAL: Follow-up with your PCP. &a-1R&a+25V*p+0X*p2650F*c202B*c15G*c2P*p-0X&a-25V&a+1R Name: Ruthie Larios : 1975 F41 MedRec: [id number] AcctNum: [id number] Prepared: SatDec 21, 2016 17:35 by Interface Page 10 of 14 pMD [facility] EMERGENCY RECORD PRESCRIPTION (15:25 RW) Cipro tablet: TABLET : 500 mg : ORAL : Quantity: 1 Unit: tab(s) Route: ORAL Schedule: every 12 hours Dispense: 14 Unit: tab(s) May substitute. Refills: No Refills . NOTES: No Refills. Ultram: TABLET : 50 mg : ORAL : Quantity: 2 Unit: tab(s) Route: ORAL Schedule: every 6 hours PRN Dispense: 20 Unit: tab(s) May substitute. Refills: No Refills . NOTES: No Refills. IMAGING *EKG: Image captured from scanner. (12:55 JPAR) *EKG #2: Image captured from scanner. (16:02 AWAT) CONSENTS: Image captured from scanner. (16:17 AWAT) *MEMORANDUM OF TRANSFER: Image captured from scanner. (16:23 AWAT) EMS TRANSPORT ORDERS: Image captured from scanner. (16:23 AWAT) TRANSFER WORKSHEET: Image captured from scanner. (16:26 AWAT) Page 2 added. Image captured from scanner. (16:27 AWAT) *SUPPLY CHARGE SHEET: Image captured from scanner. (16:42 AWAT) ADMIN (17:23 RW) DIGITAL SIGNATURE: MD Muse Richard. RESULTS RADIOLOGY: XR Chest 1 View Portable Observe DT: SatDec 21, 2016 12:39, CXRP PORTABLE CHEST: Date: 12/21/16 Time: 1236 hours HISTORY: Chest pain. FINDINGS: Comparison made with exam of 07/09/13. The heart size is normal. The lungs are well expanded without focal areas of consolidation, pneumoth orax, or pleural effusions. IMPRESSION: No acute process. POS: [facility] &a-1R&a+25V*p+0X*s2890F*c202B*c15G*c2P*p-0X&a-25V&a+1R Name: Ruthie Larios : 1975 F41 MedRec: [id number] AcctNum: [id number] Prepared: SatDec 21, 2016 17:35 by Interface Page 11 of 14 pMD [facility] EMERGENCY RECORD . (13:15 [facility]) LABORATORY: Basic Metabolic Panel Collection DT: SatDec 21, 2016 12:52, Sodium 137 mmol/L, Range (136-145), Chloride 102 mmol/L, Range (98-107), *Carbon Dioxide 20 - L mmol/L, Range (22-29), Anion Gap 19 mmol/L, Range (10-20), BUN (Urea Nitrogen) 12 mg/dL, Range (7.0-18.7), Creatinine 0.83 mg/dL, Range (0.6-1.1), Estimated GFR-MDRD 75 , Reference Range for Estimated GFR: Greater than 90, mL/min/1.73 m2 NOTE: The MDRD equation has not been validated for use, with the elderly (over 70 years of age), women, patients with, serious comorbid condition or persons with extremes of body size, muscle, mass, or nutritional status. , *Glucose 164 - H mg/dL, Range (70-105), Calcium 9.1 mg/dL, Range (7.8-10.44). (13:10 [facility]) CBC with Differential Collection DT: SatDec 21, 2016 12:53, White Blood Cell (WBC) Count 10.4 thou/uL, Range (4.8-10.8), Red Blood Cell (RBC) Count 4.43 mill/uL, Range (4.20-5.40), Hemoglobin 14.3 g/dL, Range (12.0-16.0), Hematocrit 41.3 %, Range (36.0-47.0), Mean Corpuscular Volume 93.3 fl, Range (81.0-99.0), *Mean Corpuscular Hemoglobin 32.2 - H pg, Range (27.0-31.0), Mean Corpuscular HGB CONC 34.5 g/dL, Range (32.0-36.0), RBC Distribution Width 13.0 %, Range (11.5-14.5), Platelet Count 317 thou/uL, Range (130-400), Mean Platelet Volume 9.4 fL, Range (7.4-10.4), Neutrophil 69 %, Range (42-75), *Band 2 - L %, Range (5-11), Lymphocytes 26 %, Range (21-51), Monocytes 3 %, Range (0-10). (13:15 RW) Cardiac Profile w/CKMB & TropI Collection DT: SatDec 21, 2016 12:53, CKMB 0.7 ng/mL, Range (0-6.6), Troponin I Less than 0.010 ng/mL, Range (< 0.028), Reference Range , 0.00 - 0.028 ng/mL Negative 0.029 - 0.29 ng/mL , Indeterminate Greater or Equal to 0.3 ng/mL Strongly suggests ME , . (13:22 [facility]) CBC with Differential Collection DT: SatDec 21, 2016 12:53, White Blood Cell (WBC) Count 10.4 thou/uL, Range (4.8-10.8), Red Blood Cell (RBC) Count 4.43 mill/uL, Range (4.20-5.40), Hemoglobin 14.3 g/dL, Range (12.0-16.0), Hematocrit 41.3 %, Range (36.0-47.0), Mean Corpuscular Volume 93.3 fl, Range (81.0-99.0), *Mean Corpuscular Hemoglobin 32.2 - H pg, Range (27.0-31.0), &a-1R&a+25V*p+0X*k4480N*c202B*c15G*c2P*p-0X&a-25V&a+1R Name: Ruthie Larios [place] : 1975 F41 MedRec: [id number] AcctNum: [id number] Prepared: SatDec 21, 2016 17:35 by Interface Page 12 of 14 pMD [facility] EMERGENCY RECORD Mean Corpuscular HGB CONC 34.5 g/dL, Range (32.0-36.0), RBC Distribution Width 13.0 %, Range (11.5-14.5), Platelet Count 317 thou/uL, Range (130-400), Mean Platelet Volume 9.4 fL, Range (7.4-10.4), Neutrophil 69 %, Range (42-75), *Band 2 - L %, Range (5-11), Lymphocytes 26 %, Range (21-51), Monocytes 3 %, Range (0-10). (13:22 SFRE) Basic Metabolic Panel Collection DT: SatDec 21, 2016 12:52, Sodium 137 mmol/L, Range (136-145), Potassium 4.4 mmol/L, Range (3.5-5.1), Chloride 102 mmol/L, Range (98-107), *Carbon Dioxide 20 - L mmol/L, Range (22-29), Anion Gap 19 mmol/L, Range (10-20), BUN (Urea Nitrogen) 12 mg/dL, Range (7.0-18.7), Creatinine 0.83 mg/dL, Range (0.6-1.1), Estimated GFR-MDRD 75 , Reference Range for Estimated GFR: Greater than 90, mL/min/1.73 m2 NOTE: The MDRD equation has not been validated for use, with the elderly (over 70 years of age), women, patients with, serious comorbid condition or persons with extremes of body size, muscle, mass, or nutritional status. , *Glucose 164 - H mg/dL, Range (70-105), Calcium 9.1 mg/dL, Range (7.8-10.44). (13:40 RW) B type Natriuretic Peptide Collection DT: SatDec 21, 2016 12:53, B type Natriuretic Peptide 15.1 pg/mL, Range (0-100). (13:40 RWAG) D-Dimer (Quantitative) Collection DT: SatDec 21, 2016 12:53, D-Dimer Test 0.30 *mcg/mL, Range (0.27-0.43), * Reference Range Units: mcg/mL of fibrinogen equivalent, units(FEU) Based upon a retrospective study of [facility] patients in April 2006, a result of Less than 0.44 mcg/mL FEU is, predictive of the absence of a DVT or PE. . (13:40 RWAG) Urine Microscopic Collection DT: SatDec 21, 2016 14:27, RBC/HPF 0-3 HPF, Range (0-3), *WBC/HPF 4-6 - H HPF, Range (0-3), Squamous Epithelial 0-3 HPF, Range (0-3), *Bacteria/HPF 1+ - H HPF, Range (None Seen). (14:37 RWAG) Urinalysis w/ Rflx Microscopic Collection DT: SatDec 21, 2016 14:27, Color Yellow , Range (Yellow), Clarity Clear , Range (Clear), Specific [place], Urine 1.025 , Range (1.005-1.030), pH, Urine 6.5 , Range (5.0-9.0), *Leukocyte Trace - H , Range (Negative), *Nitrite Positive - H , Range (Negative), Protein, Urine (Dipstick) Negative mg/dL, Range (Neg-Trace), &a-1R&a+25V*p+0X*y7210D*c202B*c15G*c2P*p-0X&a-25V&a+1R Name: Ruthie Larios [place] : 1975 F41 MedRec: [id number] AcctNum: [id number] Prepared: SatDec 21, 2016 17:35 by Interface Page 13 of 14 pMD [facility] EMERGENCY RECORD Glucose, Urine (Dipstick) Negative mg/dL, Range (Negative), Ketone, Urine Negative mg/dL, Range (Negative), Urobilinogen 0.2 mg/dL, Range (0.2-1.0), Bilirubin Negative , Range (Negative), *Blood, Urine Trace - H , Range (Negative). (14:37 RW) Troponin - I Collection DT: SatDec 21, 2016 14:57, Troponin I 0.024 ng/mL, Range (< 0.028), Reference Range , 0.00 - 0.028 ng/mL Negative 0.029 - 0.29 ng/mL , Indeterminate Greater or Equal to 0.3 ng/mL Strongly suggests [place] , . (15:24 RWAG) Mims: AWAT=IRA Thomas, Km CJEF=IRA Little, Melissa ROONEYAR=JESSICA Spann Julia RWAG=MD Micha, Noel SFRE=IRA Larose, Carmina &a-1R&a+25V*p+0X*h6027X*c202B*c15G*c2P*p-0X&a-25V&a+1R Name: Ruthie Larios : 1975 F41 MedRec: [id number] AcctNum: [id number] Prepared: SatDec 21, 2016 17:35 by Interface Page 14 of 14 pMD MTDD
== END 2016-12-21 16:21 | disposition short-term general hospital (02) ==
LOC: MADERS 12:22
DX: F41.9 Anxiety disorder, unspecified (principal); N39.0 Urinary tract infection, site not specified; J44.9 Chronic obstructive pulmonary disease, unspecified; F17.210 Nicotine dependence, cigarettes, uncomplicated
CPT/HCPCS: 71010; 80048; 81003; 81015; 82553; 83880; 84484; 85025; 85379; 87077; 87086; 87186; 93005; 96365; 96367; 96372; 96375; 96376; J0696; J1650; J2060; J2270; J2405; J7050

== ENCOUNTER 2017-01-08 20:08 | Emergency (ER) | payer OTHER, SELFPAY ==
[~2017-01-08 20:08] MED LIST changes: +Sodium Chloride 0.9% 1,000 ML BAG ONE; -Sodium Chloride 0.9% 100 ML BAG ONE
[2017-01-08] MEDS ORDERED: Nitroglycerin 0.4 MG TAB 1 EACH ONE (20:26)
[2017-01-08] MEDS ORDERED: Aspirin 325 MG TAB ONE (20:26)
[2017-01-08 20:30] LABS: Hemoglobin 14.1 g/dL (12.0-16.0); Red Blood Cell (RBC) Count 4.49 mill/uL (4.20-5.40); White Blood Cell (WBC) Count 10.2 thou/uL (4.8-10.8)
[2017-01-08 20:31] LABS: #Basophils 0.1 thou/uL (0.0-0.2); #Eosinphils 0.1 thou/uL (0.0-0.7); #Lymphocytes 2.5 thou/uL (1.20-3.40); #Monocytes 0.4 thou/uL (0.11-0.59); #Neutrophils 6.9 thou/uL (1.40-6.50); %Basophils 1.1 % (0.0-1.0); %Eosinophils 1.4 % (0.0-10.0); %Lymphocytes 24.9 % (21.0-51.0); %Monocytes 4.4 % (0.0-10.0); %Neutrophils 68.2 % (42.0-75.0); Mean Corpuscular HGB CONC 33.1 g/dL (32.0-36.0); Mean Corpuscular Hemoglobin 31.4 pg (27.0-31.0); Mean Corpuscular Volume 94.9 fL (81.0-99.0); Mean Platelet Volume 7.6 fL (7.4-10.4); Platelet Count 304 thou/uL (130-400)
[2017-01-08 20:32] LABS: INR-International Normal Ratio 0.9; PTT 27.7 SEC (22.9-36.1); Prothrombin Time 12.9 SEC (12.0-14.7)
[2017-01-08 20:44] LABS: ALT (SGPT) 19 U/L (0-55); AST (SGOT) 13 U/L (5-34); Albumin 4.2 g/dL (3.5-5.0); Alkaline Phosphatase 77 U/L (40-150); Anion Gap 15 mmol/L (10-20); BUN (Urea Nitrogen) 15 mg/dL (7.0-18.7); Bilirubin, Total 0.3 mg/dL (0.2-1.2); Calc. Creatinine Clearance 0 mL/min (70-130); Calcium 9.1 mg/dL (7.8-10.44); Carbon Dioxide 24 mmol/L (22-29); Chloride 103 mmol/L (98-107); Estimated GFR-MDRD 73; Globulin 3.7 g/dL (2.4-3.5); Glucose 114 mg/dL (70-105); Potassium 3.8 mmol/L (3.5-5.1); Protein, Total 7.9 g/dL (6.0-8.3); Sodium 138 mmol/L (136-145)
[2017-01-08 20:52] LABS: CKMB 0.8 ng/mL (0-6.6); Troponin I 0.036 ng/mL (< 0.028)
--- NOTE | 2017-01-08 21:03 | RAD ---
CHEST ONE VIEW 01/08/17 HISTORY: Chest pain. COMPARISON: 12/21/16 FINDINGS: The cardiac silhouette and pulmonary vasculature are unremarkable. Mediastinum is midline. There is no confluent air space consolidation or evidence of pneumothorax. IMPRESSION: No active cardiopulmonary abnormalities are demonstrated. POS: [facility]
--- NOTE | 2017-01-08 22:22 | PICIS ---
[facility] EMERGENCY RECORD COMMUNICATIONS (21:10 LHOD) COMMUNICATIONS: Notes: DISCUSSED WITH DR. BORJA, [facility] EDMD ACCEPTS FOR TRANSFER. TRIAGE (20:15 MDEB) PATIENT: NAME: Ruthie Larios, AGE: 41, GENDER: female, : Sat1975, TIME OF GREET: SatJan 08, 2017 20:09, PREFERRED LANGUAGE: Greek, RACE: WHITE, ETHNICITY: Not or , FALL RISK: NO, ECODE BILLING MAP: [facility], SSN: [id number], Zip Code: [address], KG WEIGHT: 86.18, PHONE: , , , PERSON ID: [id number], PCP: UNKNOWN. (20:15 MDEB) TRIAGE NOTES: CHEST PAIN L SIDE CHEST "PINCHING". (20:15 MDEB) COMPLAINT: CHEST PAINS. (20:15 MDEB) ADMISSION: URGENCY: 4 Non Urgent, ADMISSION SOURCE: Home, TRANSPORT: Walk-in, BED: TRIAGE. (20:15 MDEB) ASSESSMENT: Assessment: CHEST PAIN LIKE A PINCHING FEELING AT LEVEL 6 FOR APPROXIMATELY 1.5 HOURS, Symptoms began 1.5 HOURS AGO, Location: LEFT UPPER CHEST. (20:25 MCRS) PAIN: Patient complains of pain described as, sharp, on a scale 0-10 patient rates pain as 6, Pain is constant, Onset was 1.5 HOURS, Aggravating factors:, Aggravating factors include NONE, Relieving factors present, Relieving factors include MOVING AROUND. (20:37 MCRS) IMMUNIZATIONS: Flu vaccine not up to date, Tetanus not up to date, Pneumococcal vaccine not up to date. (20:38 MCRS) SIRS SCORING: Heart Rate 55-109 (0), Temp range 96.8-101.1 (0), respiratory rate 12-24 (0), Mental Status altered: no (0), Infection or Suspected Infection: No. (20:30 MCRS) TRIAGE SCREENING: Patient denies suicidal ideation, Patient denies presence of domestic violence. (20:15 MDEB) PROVIDERS: TRIAGE NURSE: Naa Diana RN. (20:15 MDEB) VITAL SIGNS: BP 129/81, Pulse 75, Resp 20, Temp 97.7, (Tympanic), O2 Sat 99, on Room Air, Time 01/08/2017 20:14. (20:14 MDEB) PREVIOUS VISIT ALLERGIES: Sulfa (Sulfonamide Antibiotics). (20:15 MDEB) KNOWN ALLERGIES No Allergy Information Available (Unconfirmed) Sulfa (Sulfonamide Antibiotics): - Entered category: Sulfa (Sulfonamide Antibiotics) -- Entered category: Sulfa (Sulfonamide Antibiotics) -- Entered category: Sulfa (Sulfonamide Antibiotics) -- Entered category: Sulfa (Sulfonamide Antibiotics) -- Entered category: Sulfa (Sulfonamide Antibi CURRENT MEDICATIONS Plavix: &a-1R&a+25V*p+0X*[id number]*c202B*c15G*c2P*p-0X&a-25V&a+1R Name: Ruthie Larios : 1975 F41 MedRec: [id number] AcctNum: [id number] Prepared: Ladarius Jan 08, 2017 22:20 by Interface Page [address] [facility] EMERGENCY RECORD TABLET : Strength - 75 mg : ORAL Patient Dose: 75. (20:24 MCRS) meTOPROLOL succinate: TABLET, EXTENDED RELEASE 24 HR : Strength - 25 mg : ORAL Patient Dose: 25 mg Oral 2 times a day. (20:25 MCRS) Crestor: TABLET : Strength - 10 mg : ORAL Patient Dose: 10 mg Oral once a day. (20:26 MCRS) aspirin: TABLET : Strength - 81 mg : ORAL Patient Dose: 81 mg Oral once a day (in the morning). (20:26 MCRS) VITAL SIGNS VITAL SIGNS: BP: 129/81, Pulse: 75, Resp: 20, Temp: 97.7 (Tympanic), O2 sat: 99 on Room Air, Time: 01/08/2017 20:14. (20:14 MDEB) BP: 97/57, Pulse: 64, Resp: 16, Temp: 98.1 (Tympanic), Pain: 1 (Sharp), O2 sat: 98 on Room Air, Time: 01/08/2017 21:30. (21:30 MCRS) BP: 93/46, Pulse: 61, Resp: 16, Temp: 98.1 (Tympanic), Pain: 1, O2 sat: 99 on Room Air, Time: 01/08/2017 21:46. (21:46 MCRS) NURSING ASSESSMENT: CARDIOVASCULAR (20:15 MCRS) CONSTITUTIONAL: Patient arrives ambulatory, Gait steady, History obtained from patient, Patient appears comfortable, Patient cooperative, Patient alert, Oriented to person, place and time, Skin warm, Skin dry, Skin normal in color, Mucous membranes pink, Mucous membranes moist, Patient is well-groomed, Patient complains of CHEST PAIN LEFT UPPER CHEST LEVEL 6. PAIN: Patient with sudden onset of pain, sharp pain, to the left chest, Onset of pain 1.5 HOURS AGO, on a scale 0-10 patient rates pain as 6, STATED GETTING UP ABND MOVING AROUND MADE HER FEEL BETTER, Nothing has been tried to alleviate the pain. NONVERBAL PAIN: Non Verbal pain assessment findings include: Non-verbal expressions of pain at rest (1), Result: 1. CARDIOVASCULAR: Cardiovascular assessment findings include heart rate normal, Heart rhythm normal sinus, Heart sounds normal, Left radial pulse +3(easily palpated, considered normal), Right radial pulse +3(easily palpated, considered normal), Left dorsalis pedis pulse +3(easily palpated, considered normal), Right dorsalis pedis pulse +3(easily palpated, considered normal). RESPIRATORY/CHEST: Breath sounds clear, Respiratory assessment findings include respiratory effort easy, Respirations regular, Conversing normally, Neck and chest exam findings include trachea midline, Chest expansion equal, Chest movement symmetrical. SAFETY: Side rails up, Cart/Stretcher in lowest position, Family at bedside, Call light within reach, Hospital ID band on. NURSING ASSESSMENT: FALL RISK (21:07 MCRS) &a-1R&a+25V*p+0X*p0254E*c202B*c15G*c2P*p-0X&a-25V&a+1R Name: Ruthie Larios [place] : 1975 F41 MedRec: [id number] AcctNum: [id number] Prepared: SatJan 08, 2017 22:20 by Interface Page [address] [facility] EMERGENCY RECORD FALL RISK: Total score 0. [place] II FALL RISK: dizziness or vertigo(1), Able to rise in a single movement; no loss of balance with steps(0), Total score 1, Score less than 5. Patient not high risk for falls. NURSING ASSESSMENT: SKIN (21:08 MCRS) CONSTITUTIONAL: Patient arrives ambulatory, Gait steady, History obtained from patient, Patient appears comfortable, Patient cooperative, Patient alert, Oriented to person, place and time, Skin dry, Skin normal in color, Mucous membranes pink, Mucous membranes moist, Patient is well-groomed, Patient complains of CHEST PAIN. PAIN: sharp pain, LEFT UPPER CHEST. NONVERBAL PAIN: Non Verbal pain assessment findings include: Non-verbal expressions of pain at rest (1). SKIN: Skin assessment findings include skin warm, Skin dry, Skin normal in color. SAFETY: Side rails up, Cart/Stretcher in lowest position, Family at bedside, Call light within reach, Hospital ID band on. NURSING PROCEDURE: HOISTING ENGINEER (20:15 MCRS) PATIENT IDENTIFIER: Patient actively involved in identification process, Patient's identity verified by hospital ID bracelet. HOISTING ENGINEER: Cardiac monitoring indicated for complaint of chest pain, Patient placed on cardiac monitor technician, Patient placed on non-invasive blood pressure monitor, Patient placed on continuous pulse oximetry. NURSING PROCEDURE: COMMUNICATIONS COMMUNICATIONS: Other notification, Name PRAVEEN, contacted at [phone], Reason for notification TRANSFER, CP R/O ACS. (21:07 ADEA) Notes: DR BORJA [facility]- ACCEPTING TRANSFER. (21:11 ADEA) Ambulance service, Name of provider [facility], Person contacted CANDICE, requested for transfer to another facility, by advanced life support transport, Estimated time of arrival [facility]ON [facility] CLEARS CURRENT CALL. (21:15 ADEA) NURSING PROCEDURE: EKG CHART (20:15 MCRS) PATIENT IDENTIFIER: Patient actively involved in identification process, Patient's identity verified by hospital ID bracelet. EKG: EKG indicated for complaint of chest pain, 12 lead EKG performed on the left chest, done by PREMA DIANA RN. FOLLOW-UP: After procedure, EKG for interpretation given to Dr. RICARDO. SAFETY: Side rails up, Cart/Stretcher in lowest position, Family at bedside, Call light within reach, Hospital ID band on. NURSING PROCEDURE: IV (20:18 MCRS) &a-1R&a+25V*p+0X*w6614K*c202B*c15G*c2P*p-0X&a-25V&a+1R Name: Ruthie Larios : 1975 F41 MedRec: [id number] AcctNum: [id number] Prepared: SatJan 08, 2017 22:20 by Interface Page [address] [facility] EMERGENCY RECORD PATIENT IDENITIFIER: Patient actively involved in identification process, Patient's identity verified by hospital ID paula. IV SITE 1: IV therapy indicated for medication administration, IV established, to the left antecubital, using a 20 gauge catheter, in one attempt, IV site prepped with CHLOROPREP, Saline lock established, Flushed with normal saline (mls): 10ML, Labs drawn at time of placement, labeled in the presence of the patient and sent to lab, Notes: SPECIMENS LABLED IN VIEW OF PATIENT. FOLLOW-UP SITE 1: After procedure, sterile transparent dressing applied. NURSING PROCEDURE: NURSE NOTES NURSES NOTES: Notes: M41 IN ER FOR TRANSFER. (21:35 ADEA) Patient states decreased pain, Pillow given to patient, Warm blanket given to patient, Patient is awaiting results. (21:15 MCRS) NURSING PROCEDURE: TRANSFER (21:46 MCRS) TRANSFER: Reason for transfer need for specialized care, Diagnosis: chest pain, Accepting institution: [facility], Accepting physician: JONH, Referring physician: HALEIGH, Transported by urgent ambulance, accompanied by emergency medical services personnel, Report called to receiving facility, vic rod, Provided opportunity to answer questions, Bed assigned er, Summary of Care printed, Copy of patient record prepared for receiving facility, Copy of diagnostic studies, Specific radiological studies sent: chest xray and labs, Status of patient's valuables documented on chart, Medication reconciliation form prepared and sent to receiving facility, Patient consent for transfer signed, Family member contacted, at bedside. BELONGINGS: cellular phone, Belongings remain with patient, Belongings sent home with family member, name: . EQUIPMENT WITH PATIENT: Equipment with patient at time of transfer cardiac monitor technician, Equipment with patient at time of transfer IV pump, Saline lock intact and patent at time of transfer. SAFETY: Side rails up, Cart/Stretcher in lowest position, Family at bedside, Call light within reach, Hospital ID band on. ORDER DETAILS Order Name: HOISTING ENGINEER ED, Status: Done, Time: 20:22 01/08/2017, User: KAREN, - Ordered for: MD Chow Lefayne, - Entered by: IRA Torres, Brandon Tang alexandro Jan 08, 2017 20:20, - Quantity: 1, Order Name: Cardiac Profile w/CKMB & Troponin - I, Status: Active, Time: 20:20 01/08/2017, User: KAREN, - Ordered for: MD Chow Lefayne, - Entered by: IRA Torres, Brandon Durand Jan 08, 2017 20:20, - Quantity: 1, &a-1R&a+25V*p+0X*w3466G*c202B*c15G*c2P*p-0X&a-25V&a+1R Name: Ruthie Larios : 1975 F41 MedRec: [id number] AcctNum: [id number] Prepared: SatJan 08, 2017 22:20 by Interface Page [address] [facility] EMERGENCY RECORD Order Name: CBC with Differential, Status: Active, Time: 20:22 01/08/2017, User: SYL, - Ordered for: MD Chow Lefayne, - Entered by: MD Chow Lefayne - alexandro Jan 08, 2017 20:22, - Quantity: 1, Order Name: Comprehensive Metabolic Panel, Status: Active, Time: 20:22 01/08/2017, User: SYL, - Ordered for: MD Chow Lefayne, - Entered by: MD Chow Lefayne - Ladarius Jan 08, 2017 20:22, - Quantity: 1, Order Name: Drug Screen, Urine, Status: Canceled, Time: 21:59 01/08/2017, User: MCRS, - Ordered for: MD Chow Lefayne, - Entered by: MD Chow Lefayne - alexandro Jan 08, 2017 20:23, - Quantity: 1, Order Name: EKG 12 Lead in Emergency Room, Status: Active, Time: 20:20 01/08/2017, User: ADEA, - Ordered for: MD Chow Lefayne, - Entered by: IRA Torres, BrandonsatJan 08, 2017 20:20, - Quantity: 1, Order Name: EKG 12 Lead in Emergency Room, Status: Active, Time: 20:56 01/08/2017, User: LHOD, - Ordered for: MD Chow Lefayne, - Entered by: MD Chow Lefayne - Jan 08, 2017 20:56, - Quantity: 1, Order Name: O2, Status: Done, Time: 20:22 01/08/2017, User: ADEA, - Ordered for: MD Chow Lefayne, - Entered by: IRA Torres, BrandonsatJan 08, 2017 20:21, - Quantity: 1, Order Name: Protime with INR, Status: Active, Time: 20:20 01/08/2017, User: ADEA, - Ordered for: MD Chow Lefayne, - Entered by: IRA Torres, BrandonsatJan 08, 2017 20:20, - Quantity: 1, Order Name: PTT, Status: Active, Time: 20:20 01/08/2017, User: ADEA, - Ordered for: MD Chow Lefayne, - Entered by: IRA Torres, SatJan 08, 2017 20:20, - Quantity: 1, Order Name: SALINE LOCK, Status: Done, Time: 20:22 01/08/2017, User: ADEA, - Ordered for: MD Chow Lefayne, - Entered by: IRA Torres, BrandonsatJan 08, 2017 20:20, - Quantity: 1, Order Name: Urinalysis w/ Rflx Microscopic, Status: Canceled, Time: 22:00 01/08/2017, User: MCRS, - Ordered for: MD Chow Lefayne, - Entered by: MD Chow Lefayne - [facility] Jan 08, 2017 20:23, - Quantity: 1, Order Name: XR Chest 1 View Portable, Status: Active, Time: 20:23 01/08/2017, User: SYL, &a-1R&a+25V*p+0X*r3991D*c202B*c15G*c2P*p-0X&a-25V&a+1R Name: Ruthie Larios : 1975 F41 MedRec: [id number] AcctNum: [id number] Prepared: SatJan 08, 2017 22:20 by Interface Page [address] [facility] EMERGENCY RECORD - Ordered for: MD Chow Lefayne, - Entered by: MD Chow Lefayne - SatJan 08, 2017 20:23, - Quantity: 1. MEDICATION ADMINISTRATION SUMMARY Drug Name: nitroglycerin sublingual, Dose Ordered: 0.4 mg, Route: Sublingual, Status: Canceled, Time: 21:11 01/08/2017, Drug Name: *Normal Saline, Dose Ordered: 300 mL, Route: IV Fluid Infusion, Status: Given, Time: 21:16 01/08/2017, Drug Name: *Normal Saline, Dose Ordered: 300 mL, Route: IV Fluid Infusion, Status: Given, Time: 20:55 01/08/2017, Drug Name: *nitroglycerin sublingual, Dose Ordered: 0.4 mg, Route: Sublingual, Status: Given, Time: 20:40 01/08/2017, Drug Name: nitroglycerin sublingual, Dose Ordered: 0.4 mg, Route: Sublingual, Status: Given, Time: 20:34 01/08/2017, Drug Name: Normal Saline, Dose Ordered: 150 mL/hr, Route: IV Fluid Infusion, Status: Given, Time: 20:32 01/08/2017, Drug Name: aspirin oral, Dose Ordered: 325 mg, Route: Oral, Status: Given, Time: 20:32 01/08/2017, *Additional information available in notes, Detailed record available in Medication Service section. MEDICATION SERVICE aspirin oral: Order: aspirin oral (aspirin) - Dose: 325 mg : Oral Ordered by: Rajeev Chow MD Entered by: Rajeev Chow MD SatJan 08, 2017 20:22 , Acknowledged by: Naa Diana RN SatJan 08, 2017 20:25 Documented as given by: Flo Williamson RN SatJan 08, 2017 20:32 Patient, Medication, Dose, Route and Time verified prior to administration. Amount given: 325MG, Site: Medication administered P.O., Patient appears Awake and alert- acceptable, Correct patient, time, route, dose and medication confirmed prior to administration, Patient advised of actions and side-effects prior to administration, Allergies confirmed and medications reviewed prior to administration, Patient in position of comfort, Side rails up, Cart in lowest position, Family at bedside. : Follow Up : Response assessment performed, No signs or symptoms of allergic reaction noted, No change in symptoms. (21:45 MCRS) nitroglycerin sublingual: Order: nitroglycerin sublingual (nitroglycerin) - Dose: 0.4 mg : Sublingual Ordered by: Rajeev Chow MD Entered by: Rajeev Chow MD SatJan 08, 2017 20:22 , Acknowledged by: Flo Williamson RN SatJan 08, 2017 20:27 Documented as given by: Flo Williamson RN SatJan 08, 2017 20:34 Patient, Medication, Dose, Route and Time verified prior to administration. Amount given: 0.4MG, Site: Medication administered S.L., Patient &a-1R&a+25V*p+0X*z3356B*c202B*c15G*c2P*p-0X&a-25V&a+1R Name: Ruthie Larios : 1975 F41 MedRec: [id number] AcctNum: [id number] Prepared: SatJan 08, 2017 22:20 by Interface Page [address] [facility] EMERGENCY RECORD appears Awake and alert- acceptable, Correct patient, time, route, dose and medication confirmed prior to administration, Patient advised of actions and side-effects prior to administration, Allergies confirmed and medications reviewed prior to administration, Patient in position of comfort, Side rails up, Cart in lowest position, Family at bedside. : Follow Up : Response assessment performed, No signs or symptoms of allergic reaction noted, Decreased pain, Decreased symptoms, Advised not to ambulate without assistance, Patient in position of comfort, Side rails up, Cart in lowest position, Family at bedside. (20:40 MCRS) nitroglycerin sublingual: Order: nitroglycerin sublingual (nitroglycerin) - Dose: 0.4 mg : Sublingual Notes: DR RICARDO REEVALUATED PATIENT - PAIN DROPEED FROM LEVEL 6 TO LEVEL 3 .. MD ORDERED REPEAT DOSE AT THIS TIME Ordered by: Rajeev Chow MD Entered by: Flo Williamson RN SatJan 08, 2017 20:45 , Acknowledged by: Flo Williamson RN Jan 08, 2017 20:45 Documented as given by: Flo Williamson RN Jan 08, 2017 20:40 Patient, Medication, Dose, Route and Time verified prior to administration. Amount given: 0.4MG, Site: Medication administered S.L., Patient appears Awake and alert- acceptable, Correct patient, time, route, dose and medication confirmed prior to administration, Patient advised of actions and side-effects prior to administration, Allergies confirmed and medications reviewed prior to administration, Patient in position of comfort, Side rails up, Cart in lowest position, Family at bedside. : Follow Up : Response assessment performed, No signs or symptoms of allergic reaction noted, Decreased pain, Decreased symptoms, Advised not to ambulate without assistance, Patient in position of comfort, Side rails up, Cart in lowest position, Family at bedside. (20:45 MCRS) Normal Saline: Order: Normal Saline (0.9 % sodium chloride) - Dose: 150 mL/hr : IV Fluid Infusion Ordered by: Rajeev Chow MD Entered by: Rajeev Chow MD Jan 08, 2017 20:22 , Acknowledged by: Naa Diana RN Jan 08, 2017 20:25 Documented as given by: Flo Williamson RN SatJan 08, 2017 20:32 Patient, Medication, Dose, Route and Time verified prior to administration. Amount given: 1000ML, IV SITE #1 IV fluids established for hydration, IV SITE #1 into left antecubital, IV SITE #1 1st bag hung, amount 1 Liter hung, IV SITE #1 Rate of infusion (non-bolus) Infusing at 150 ml/hr, via primary tubing, IV SITE #1 on IV pump, Awake and alert- acceptable, Catheter placement confirmed via flush prior to administration, IV site without signs or symptoms of infiltration during medication administration, No swelling during administration, No drainage during administration, IV flushed after administration, Correct patient, time, route, dose and medication confirmed prior to &a-1R&a+25V*p+0X*d5725E*c202B*c15G*c2P*p-0X&a-25V&a+1R Name: Ruthie Larios : 1975 F41 MedRec: [id number] AcctNum: [id number] Prepared: SatJan 08, 2017 22:20 by Interface Page [address] [facility] EMERGENCY RECORD administration, Patient advised of actions and side-effects prior to administration, Allergies confirmed and medications reviewed prior to administration, Patient in position of comfort, Side rails up, Cart in lowest position, Family at bedside. : Follow Up : No signs or symptoms of allergic reaction noted, No change in symptoms, _IV SITE #1:_, IV fluid infusion continued upon transfer from emergency department, on SatJan 08, 2017 21:45, Total fluid hydration time IV site 1 1 hour, 15 minutes, ., Total amount infused: 700, Response assessment performed. (21:45 MCRS) Normal Saline: Order: Normal Saline (0.9 % sodium chloride) - Dose: 300 mL : IV Fluid Infusion Notes: BOLUS Ordered by: Rajeev Chow MD Entered by: Rajeev Chow MD SatJan 08, 2017 20:54 , Acknowledged by: Flo Williamson RN SatJan 08, 2017 21:05 Documented as given by: Flo Williamson RN SatJan 08, 2017 20:55 Patient, Medication, Dose, Route and Time verified prior to administration. Amount given: 300ML, Awake and alert- acceptable, Catheter placement confirmed via flush prior to administration, IV site without signs or symptoms of infiltration during medication administration, No swelling during administration, No drainage during administration, IV flushed after administration, Correct patient, time, route, dose and medication confirmed prior to administration, Patient advised of actions and side-effects prior to administration, Allergies confirmed and medications reviewed prior to administration, Patient in position of comfort, Side rails up, Cart in lowest position, Family at bedside. : Follow Up : Response assessment performed, No signs or symptoms of allergic reaction noted, Decreased symptoms, Eye Opening spontaneously, 4, Verbal Response oriented/conversive, 5, Motor Response obeys commands, 6, The GCS total is 15, O2 saturation reading 98%, on room air, Patient on cardiac monitor technician showing normal sinus rhythm, Advised not to ambulate without assistance, Patient in position of comfort, Side rails up, Cart in lowest position, Family at bedside. (20:55 MCRS) Normal Saline: Order: Normal Saline (0.9 % sodium chloride) - Dose: 300 mL : IV Fluid Infusion Notes: BOLUS--REPEAT FOR 2ND 300 ML BOLUS Ordered by: Rajeev Chow MD Entered by: Rajeev hCow MD SatJan 08, 2017 21:07 , Acknowledged by: Flo Williamson RN SatJan 08, 2017 21:12 Documented as given by: Flo Williamson RN SatJan 08, 2017 21:16 Patient, Medication, Dose, Route and Time verified prior to administration. Amount given: 300, IV SITE #1 IV fluids established for hydration, IV SITE #1 into left antecubital, IV SITE #1 bolus of 300 ml established, IV SITE #1 Rate of infusion (non-bolus) Infusing at 150 &a-1R&a+25V*p+0X*z2160Z*c202B*c15G*c2P*p-0X&a-25V&a+1R Name: Ruthie Larios : 1975 F41 MedRec: [id number] AcctNum: [id number] Prepared: SatJan 08, 2017 22:20 by Interface Page [address] [facility] EMERGENCY RECORD ml/hr, via primary tubing, IV SITE #1 on IV pump, Awake and alert- acceptable, Catheter placement confirmed via flush prior to administration, IV site without signs or symptoms of infiltration during medication administration, No swelling during administration, No drainage during administration, IV flushed after administration, Correct patient, time, route, dose and medication confirmed prior to administration, Patient advised of actions and side-effects prior to administration, Allergies confirmed and medications reviewed prior to administration, Patient in position of comfort, Side rails up, Cart in lowest position, Family at bedside. : Follow Up : Response assessment performed, No signs or symptoms of allergic reaction noted, No change in symptoms, _IV SITE #1:_. (21:45 MCRS) (CANCELED) nitroglycerin sublingual: Order: nitroglycerin sublingual (nitroglycerin) - Dose: 0.4 mg : Sublingual Ordered by: Rajeev Chow MD Entered by: aRjeev Chow MD SatJan 08, 2017 20:54 Canceled by: Flo Williamson RN. SatJan 08, 2017 21:11 Cancel reason: repeat veronica given already - as repeat order .. HPI CHEST PAIN (20:32 LHOD) CHIEF COMPLAINT: Patient presents for evaluation of chest pain, ongoing. HISTORIAN: History provided by patient. SEVERITY: Maximum severity of pain rated as 8/10, Current severity of pain rated as 5/10. TIME COURSE: APPROX. 1830 PT REPORTS SHE WAS GETTING OUT OF THE TUB WHEN SHE HAD A "PINCHING", ""STABBING" PAIN OF LEFT ANTERIOR CHEST. PT HAD AN WY AND HAD CORONARY ARTERY STENT PLACED AT THAT TIME. SHE REPORTS SHE WAS NOT TOLD WHAT TO TAKE FOR FURTHER PAIN, SO TOOK NOTHING TONIGHT FOR THE CHEST PAIN. PAIN TONIGHT IS LESS THAN WHEN SHE HAD AN WY. SHE REPORTS THIS AM SHE WAS FEELING LIGHT HEADED AND HAD LOW BP, BUT TOOK HER BP MED. ASSOCIATED WITH: No associated chills, No associated cough, No associated diaphoresis, No associated fever, No associated nausea, No associated palpitations, No associated shortness of breath, No associated trauma, No associated upper respiratory infection, No associated vomiting. EXACERBATED BY: Patient's condition exacerbated by palpation of chest. RELIEVED BY: Patient's condition relieved by nothing because patient has not tried anything for relief. RISK FACTORS: Coronary artery disease risk factors. ROS (20:38 LHOD) CONSTITUTIONAL: Historian denies chills, denies fever. CARDIOVASCULAR: Historian reports chest pain, denies diaphoresis, denies edema, denies palpitations. RESPIRATORY: Historian denies cough, denies shortness of breath. &a-1R&a+25V*p+0X*i2652K*c202B*c15G*c2P*p-0X&a-25V&a+1R Name: Ruthie Larios : 1975 F41 MedRec: [id number] AcctNum: [id number] Prepared: SatJan 08, 2017 22:20 by Interface Page [address] [facility] EMERGENCY RECORD GI: Historian denies abdominal pain, denies nausea, denies vomiting. GENITOURINARY FEMALE: Historian denies dysuria. MUSCULOSKELETAL: Historian denies back pain, denies neck pain. TENDERNESS OVER LEFT ANTERIOR CHEST. SKIN: Historian denies rash, EASY BRUISING SINCE BEING PLACED ON PLAVIX. NEUROLOGIC: Historian denies headache. HEMO/LYMPHATIC: Historian reports easy bruising. NOTES: All systems reviewed, negative except as described above. PAST MEDICAL HISTORY MEDICAL HISTORY: Past medical history includes cardiac history, coronary artery disease, Treated with stent placement, Number of stents: 1, 12/21/2016, Notes: as listed, Past medical history includes pulmonary disease, chronic obstructive pulmonary disease, Notes: GRAVES DISEASE. (20:15 MDEB) FEMALE SURGICAL HISTORY: as listed, Surgical history of section, Notes: X3, Surgical history of tubal ligation. (20:15 MDEB) PSYCHIATRIC HISTORY: Notes: as lsited, Notes: ANXIETY PER PATIENT. (20:15 MDEB) SOCIAL HISTORY: Social History includes as lsited, Patient denies alcohol use, Patient denies drug use, Patient is a former tobacco user, Patient currently uses tobacco, Patient smokes cigarettes, Patient smokes 1 pack per day, 19 YEARS SMOKING HISTORY Patient denies alcohol use, Patient denies drug use,. (20:15 MDEB) NOTES: Nursing records reviewed, [place] 2015 WITH CORONARY STENT. 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 NECK: Neck exam included findings of normal range of motion, Trachea midline. RESPIRATORY CHEST: Respiratory exam included findings of no respiratory distress, Breath sounds clear, Tenderness, moderate, to the left anterior chest, Comprehensive breast exam included findings of breasts symmetrical. CARDIOVASCULAR: Heart rate regular rate and rhythm, Heart sounds normal. ABDOMEN FEMALE: Abdominal exam included findings of abdomen nontender. BACK: Back exam normal. &a-1R&a+25V*p+0X*f3514F*c202B*c15G*c2P*p-0X&a-25V&a+1R Name: Ruthie Larios : 1975 F41 MedRec: [id number] AcctNum: [id number] Prepared: SatJan 08, 2017 22:20 by Interface Page [address] [facility] EMERGENCY RECORD UPPER EXTREMITY: Upper extremity exam normal. LOWER EXTREMITY: LARGE BRUISE OVER LATERAL LOWER LEFT LEG. NON-TENDER. NEURO: Neuro exam findings include patient oriented to person, place and time, Speech normal, Cranial nerves intact, no focal motor deficits, no focal sensory deficits. SKIN: BRUISING OVER LEFT LOWER LATERAL LEG. LAB INTERPRETATION (20:44 LHOD) INTERPRETATION: I reviewed the lab results, CBC normal, Chemistry normal, PT normal, PTT normal. EVENTS TRANSFER: Triage to Emergency Triage. (SatJan 08, 2017 20:15 MDEB) Emergency Triage to Main ED -01. (20:18 MCRS) Removed from Emergency Main ED -01. (22:13 MCRS) RADIOLOGYINTERPRETATION (20:44 LHOD) CHEST: Chest films negative. EKG INTERPRETATION (20:43 LHOD) 12 LEAD EKG INTERPRETATION: 12 lead EKG interpreted by Emergency Department Physician at time of study, 12 lead EKG shows normal sinus rhythm, Rate (beats per minute): 67, with no ectopics, T waves, inverted, Leads affected: III, Leads affected: aVf, Areas affected: inferior leads, [place] normal. PROBLEM LIST No recorded problems DIAGNOSIS (21:12 LHOD) FINAL: PRIMARY: CHEST PAIN WITH ACUTE CORONARY SYNDROME. DISPOSITION PATIENT: Disposition Type: Transfer, Disposition: Transfer to [facility], Condition: Good. (21:12 LHOD) Disposition Transport: Ambulance. (22:13 MCRS) Patient left the department. (22:13 MCRS) PRESCRIPTION No recorded prescriptions IMAGING *EKG: Image captured from scanner. (21:27 MCRS) Page 2 added. Image captured from scanner. (21:27 MCRS) VITAL SIGNS: Image captured from scanner. (21:31 MCRS) *MEMORANDUM OF TRANSFER: Image captured from scanner. (21:33 &a-1R&a+25V*p+0X*f1493Y*c202B*c15G*c2P*p-0X&a-25V&a+1R Name: Ruthie Larios : 1975 F41 MedRec: [id number] AcctNum: [id number] Prepared: SatJan 08, 2017 22:20 by Interface Page [address] [facility] EMERGENCY RECORD ADEA) TRANSFER CONSENT: Image captured from scanner. (21:33 ADEA) EMS TRANSPORT ORDERS: Image captured from scanner. (21:33 ADEA) TRANSFER WORKSHEET: Image captured from scanner. (21:45 ADEA) Page 2 added. Image captured from scanner. (21:45 ADEA) RESULTS RADIOLOGY: XR Chest 1 View Portable Observe DT: SatJan 08, 2017 20:25, CXRP CHEST ONE VIEW 01/08/17 HISTORY: Chest pain. COMPARISON: 12/21/16 FINDINGS: The cardiac silhouette and pulmonary vasculature are unremarkable. Mediastinum is midline. There is no confluent air space consolidation or evidence of pneumothorax. IMPRESSION: No active cardiopulmonary abnormalities are demonstrated. POS: [facility] . (21:11 LHOD) LABORATORY: CBC with Differential Collection DT: SatJan 08, 2017 20:27, White Blood Cell (WBC) Count 10.2 thou/uL, Range (4.8-10.8), Red Blood Cell (RBC) Count 4.49 mill/uL, Range (4.20-5.40), Hemoglobin 14.1 g/dL, Range (12.0-16.0), Hematocrit 42.6 %, Range (36.0-47.0), Mean Corpuscular Volume 94.9 fL, Range (81.0-99.0), *Mean Corpuscular Hemoglobin 31.4 - H pg, Range (27.0-31.0), Mean Corpuscular HGB CONC 33.1 g/dL, Range (32.0-36.0), RBC Distribution Width 13.0 %, Range (11.5-14.5), Platelet Count 304 thou/uL, Range (130-400), Mean Platelet Volume 7.6 fL, Range (7.4-10.4), %Neutrophils 68.2 %, Range (42.0-75.0), %Lymphocytes 24.9 %, Range (21.0-51.0), %Monocytes 4.4 %, Range (0.0-10.0), %Eosinophils 1.4 %, Range (0.0-10.0), *%Basophils 1.1 - H %, Range (0.0-1.0), *#Neutrophils 6.9 - H thou/uL, Range (1.40-6.50), #Lymphocytes 2.5 thou/uL, Range (1.20-3.40), #Monocytes 0.4 thou/uL, Range (0.11-0.59), #Eosinphils 0.1 thou/uL, Range (0.0-0.7), &a-1R&a+25V*p+0X*p7598O*c202B*c15G*c2P*p-0X&a-25V&a+1R Name: Ruthie Larios [place] : 1975 F41 MedRec: [id number] AcctNum: [id number] Prepared: SatJan 08, 2017 22:20 by Interface Page [address] [facility] EMERGENCY RECORD #Basophils 0.1 thou/uL, Range (0.0-0.2). (20:38 LHOD) PTT Collection DT: SatJan 08, 2017 20:27, See comment below , Anticoagulant? NONE Medical Necessity SUSPECT COAGULOPATHY , PTT 27.7 SEC, Range (22.9-36.1). (20:38 LHOD) Protime with INR Collection DT: SatJan 08, 2017 20:27, See comment below , Anticoagulant? NONE Medical Necessity SUSPECT COAGULOPATHY , Prothrombin Time 12.9 SEC, Range (12.0-14.7), INR-International Normal Ratio 0.9 , ATTENTION: READ CAREFULLY , The, recommended therapeutic ranges for oral anticoagulant treatments are: , , Low Intensity: 1.5 - 2.0 Moderate Intensity: 2.0, - 3.0 High Intensity (1): 2.5 - 3.5 High, Intensity (2): 3.0 - 4.0 CRITICAL: >, 4.0 . (20:38 LHOD) Comprehensive Metabolic Panel Collection DT: SatJan 08, 2017 20:27, Sodium 138 mmol/L, Range (136-145), Potassium 3.8 mmol/L, Range (3.5-5.1), Chloride 103 mmol/L, Range (98-107), Carbon Dioxide 24 mmol/L, Range (22-29), Anion Gap 15 mmol/L, Range (10-20), BUN (Urea Nitrogen) 15 mg/dL, Range (7.0-18.7), Creatinine 0.85 mg/dL, Range (0.6-1.1), Estimated GFR-MDRD 73 , Reference Range for Estimated GFR: Greater than 90, mL/min/1.73 m2 NOTE: The MDRD equation has not been validated for use, with the elderly (over 70 years of age), women, patients with, serious comorbid condition or persons with extremes of body size, muscle, mass, or nutritional status. , *Glucose 114 - H mg/dL, Range (70-105), Calcium 9.1 mg/dL, Range (7.8-10.44), Bilirubin, Total 0.3 mg/dL, Range (0.2-1.2), Protein, Total 7.9 g/dL, Range (6.0-8.3), NOTE: Plasma values are generally 0.3 to 0.5 g/dL higher than serum values, due to the presence of fibrinogen. , Albumin 4.2 g/dL, Range (3.5-5.0), *Globulin 3.7 - H g/dL, Range (2.4-3.5), *Alb/Glob Ratio 1.1 - L g/dL, Range (1.2-2.2), &a-1R&a+25V*p+0X*r1313P*c202B*c15G*c2P*p-0X&a-25V&a+1R Name: Ruthie Larios : 1975 1 MedRec: [id number] AcctNum: [id number] Prepared: SatJan 08, 2017 22:20 by Interface Page [address] [facility] EMERGENCY RECORD Alkaline Phosphatase 77 U/L, Range (40-150), AST (SGOT) 13 U/L, Range (5-34), ALT (SGPT) 19 U/L, Range (0-55). (20:51 LHOD) Cardiac Profile w/CKMB & TropI Collection DT: SatJan 08, 2017 20:27, CKMB 0.8 ng/mL, Range (0-6.6), *Troponin I 0.036 - H ng/mL, Range (< 0.028), Reference Range , 0.00 - 0.028 ng/mL Negative 0.029 - 0.29 ng/mL , Indeterminate Greater or Equal to 0.3 ng/mL Strongly suggests [place] , . (20:55 LHOD) Mims: ADEA=IRA Torres, Brandon LHOD=MD Chow Lefayne MCRS=IRA Williamson, Flo CORTESEB=IRA Diana, Naa &a-1R&a+25V*p+0X*q5298J*c202B*c15G*c2P*p-0X&a-25V&a+1R Name: Ruthie Larios : 1975 F41 MedRec: [id number] AcctNum: [id number] Prepared: SatJan 08, 2017 22:20 by Interface Page 14 of 14 pMD MTDD
--- NOTE | 2017-01-08 22:54 | ERRECORD ---
HEALTH SYSTEM EMERGENCY RECORD HPI CHEST PAIN (20:32 LHOD) CHIEF COMPLAINT: Patient presents for evaluation of chest pain, ongoing. HISTORIAN: History provided by patient. SEVERITY: Maximum severity of pain rated as 8/10, Current severity of pain rated as 5/10. TIME COURSE: APPROX. 1830 PT REPORTS SHE WAS GETTING OUT OF THE TUB WHEN SHE HAD A "PINCHING", ""STABBING" PAIN OF LEFT ANTERIOR CHEST. PT HAD AN ND AND HAD CORONARY ARTERY STENT PLACED AT THAT TIME. SHE REPORTS SHE WAS NOT TOLD WHAT TO TAKE FOR FURTHER PAIN, SO TOOK NOTHING TONIGHT FOR THE CHEST PAIN. PAIN TONIGHT IS LESS THAN WHEN SHE HAD AN ND. SHE REPORTS THIS AM SHE WAS FEELING LIGHT HEADED AND HAD LOW BP, BUT TOOK HER BP MED. ASSOCIATED WITH: No associated chills, No associated cough, No associated diaphoresis, No associated fever, No associated nausea, No associated palpitations, No associated shortness of breath, No associated trauma, No associated upper respiratory infection, No associated vomiting. EXACERBATED BY: Patient's condition exacerbated by palpation of chest. RELIEVED BY: Patient's condition relieved by nothing because patient has not tried anything for relief. RISK FACTORS: Coronary artery disease risk factors. ROS (20:38 LHOD) CONSTITUTIONAL: Historian denies chills, denies fever. CARDIOVASCULAR: Historian reports chest pain, denies diaphoresis, denies edema, denies palpitations. RESPIRATORY: Historian denies cough, denies shortness of breath. GI: Historian denies abdominal pain, denies nausea, denies vomiting. GENITOURINARY FEMALE: Historian denies dysuria. MUSCULOSKELETAL: Historian denies back pain, denies neck pain. TENDERNESS OVER LEFT ANTERIOR CHEST. SKIN: Historian denies rash, EASY BRUISING SINCE BEING PLACED ON PLAVIX. NEUROLOGIC: Historian denies headache. HEMO/LYMPHATIC: Historian reports easy bruising. NOTES: All systems reviewed, negative except as described above. PAST MEDICAL HISTORY MEDICAL HISTORY: Past medical history includes cardiac history, coronary artery disease, Treated with stent placement, Number of stents: 1, 12/21/2016, Notes: as listed, Past medical history includes pulmonary disease, chronic obstructive pulmonary disease, Notes: GRAVES DISEASE. (20:15 MDEB) FEMALE SURGICAL HISTORY: as listed, Surgical history of section, Notes: X3, Surgical history of tubal ligation. (20:15 MDEB) &a-1R&a+25V*p+0X*p7433L*c202B*c15G*c2P*p-0X&a-25V&a+1R Name: Ruthie Larios : 1975 F41 MedRec: [id number] AcctNum: [id number] Prepared: Ladarius Jan 08, 2017 22:47 by Interface Page 1 of 4 pMD [facility] EMERGENCY RECORD PSYCHIATRIC HISTORY: Notes: as lsited, Notes: ANXIETY PER PATIENT. (20:15 MDEB) SOCIAL HISTORY: Social History includes as lsited, Patient denies alcohol use, Patient denies drug use, Patient is a former tobacco user, Patient currently uses tobacco, Patient smokes cigarettes, Patient smokes 1 pack per day, 19 YEARS SMOKING HISTORY Patient denies alcohol use, Patient denies drug use,. (20:15 MDEB) NOTES: Nursing records reviewed, [place] 2015 WITH CORONARY STENT. (20:41 LHOD) KNOWN ALLERGIES No Allergy Information Available (Unconfirmed) Sulfa (Sulfonamide Antibiotics): - Entered category: Sulfa (Sulfonamide Antibiotics) -- Entered category: Sulfa (Sulfonamide Antibiotics) -- Entered category: Sulfa (Sulfonamide Antibiotics) -- Entered category: Sulfa (Sulfonamide Antibiotics) -- Entered category: Sulfa (Sulfonamide Antibi CURRENT MEDICATIONS Plavix: TABLET : Strength - 75 mg : ORAL Patient Dose: 75. (20:24 MCRS) meTOPROLOL succinate: TABLET, EXTENDED RELEASE 24 HR : Strength - 25 mg : ORAL Patient Dose: 25 mg Oral 2 times a day. (20:25 MCRS) Crestor: TABLET : Strength - 10 mg : ORAL Patient Dose: 10 mg Oral once a day. (20:26 MCRS) aspirin: TABLET : Strength - 81 mg : ORAL Patient Dose: 81 mg Oral once a day (in the morning). (20:26 MCRS) VITAL SIGNS VITAL SIGNS: BP: 129/81, Pulse: 75, Resp: 20, Temp: 97.7 (Tympanic), O2 sat: 99 on Room Air, Time: 01/08/2017 20:14. (20:14 MDEB) BP: 97/57, Pulse: 64, Resp: 16, Temp: 98.1 (Tympanic), Pain: 1 (Sharp), O2 sat: 98 on Room Air, Time: 01/08/2017 21:30. (21:30 MCRS) BP: 93/46, Pulse: 61, Resp: 16, Temp: 98.1 (Tympanic), Pain: 1, O2 sat: 99 on Room Air, Time: 01/08/2017 21:46. 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 &a-1R&a+25V*p+0X*m7136O*c202B*c15G*c2P*p-0X&a-25V&a+1R Name: Ruthie Larios [place] : 1975 F41 MedRec: [id number] AcctNum: [id number] Prepared: SatJan 08, 2017 22:47 by Interface Page 2 of 4 pMD [facility] EMERGENCY RECORD NECK: Neck exam included findings of normal range of motion, Trachea midline. RESPIRATORY CHEST: Respiratory exam included findings of no respiratory distress, Breath sounds clear, Tenderness, moderate, to the left anterior chest, Comprehensive breast exam included findings of breasts symmetrical. CARDIOVASCULAR: Heart rate regular rate and rhythm, Heart sounds normal. ABDOMEN FEMALE: Abdominal exam included findings of abdomen nontender. BACK: Back exam normal. UPPER EXTREMITY: Upper extremity exam normal. LOWER EXTREMITY: LARGE BRUISE OVER LATERAL LOWER LEFT LEG. NON-TENDER. NEURO: Neuro exam findings include patient oriented to person, place and time, Speech normal, Cranial nerves intact, no focal motor deficits, no focal sensory deficits. SKIN: BRUISING OVER LEFT LOWER LATERAL LEG. EKG INTERPRETATION (20:43 LHOD) 12 LEAD EKG INTERPRETATION: 12 lead EKG interpreted by Emergency Department Physician at time of study, 12 lead EKG shows normal sinus rhythm, Rate (beats per minute): 67, with no ectopics, T waves, inverted, Leads affected: III, Leads affected: aVf, Areas affected: inferior leads, [place] normal. RADIOLOGYINTERPRETATION (20:44 LHOD) CHEST: Chest films negative. MEDICATION ADMINISTRATION SUMMARY Drug Name: nitroglycerin sublingual, Dose Ordered: 0.4 mg, Route: Sublingual, Status: Canceled, Time: 21:11 01/08/2017, Drug Name: *Normal Saline, Dose Ordered: 300 mL, Route: IV Fluid Infusion, Status: Given, Time: 21:16 01/08/2017, Drug Name: *Normal Saline, Dose Ordered: 300 mL, Route: IV Fluid Infusion, Status: Given, Time: 20:55 01/08/2017, Drug Name: *nitroglycerin sublingual, Dose Ordered: 0.4 mg, Route: Sublingual, Status: Given, Time: 20:40 01/08/2017, Drug Name: nitroglycerin sublingual, Dose Ordered: 0.4 mg, Route: Sublingual, Status: Given, Time: 20:34 01/08/2017, Drug Name: Normal Saline, Dose Ordered: 150 mL/hr, Route: IV Fluid Infusion, Status: Given, Time: 20:32 01/08/2017, Drug Name: aspirin oral, Dose Ordered: 325 mg, Route: Oral, Status: Given, Time: 20:32 01/08/2017, *Additional information available in notes, Detailed record available in Medication Service section. PROBLEM LIST No recorded problems &a-1R&a+25V*p+0X*a2526Q*c202B*c15G*c2P*p-0X&a-25V&a+1R Name: Ruthie Larios [place] : 1975 F41 MedRec: [id number] AcctNum: [id number] Prepared: SatJan 08, 2017 22:47 by Interface Page 3 of 4 pMD [facility] EMERGENCY RECORD DIAGNOSIS (21:12 LHOD) FINAL: PRIMARY: CHEST PAIN WITH ACUTE CORONARY SYNDROME. PRESCRIPTION No recorded prescriptions DISPOSITION PATIENT: Disposition Type: Transfer, Disposition: Transfer to [facility], Condition: Good. (21:12 LHOD) Disposition Transport: Ambulance. (22:13 MCRS) Patient left the department. (22:13 MCRS) Mims: LHOD=MD Claudine, Rajeev MEDINAS=IRA Williamson, Flo CORTESEB=IAR Diana, Naa &a-1R&a+25V*p+0X*b4717K*c202B*c15G*c2P*p-0X&a-25V&a+1R Name: Ruthie Larios [place] : 1975 F41 MedRec: [id number] AcctNum: [id number] Prepared: Ladarius Jan 08, 2017 22:47 by Interface Page 4 of 4 pMD MTDD
== END 2017-01-08 21:45 | disposition short-term general hospital (02) ==
LOC: MADERS 20:08
DX: I24.9 Acute ischemic heart disease, unspecified (principal); J44.9 Chronic obstructive pulmonary disease, unspecified; F41.9 Anxiety disorder, unspecified; F17.210 Nicotine dependence, cigarettes, uncomplicated; Z79.82 Long term (current) use of aspirin
CPT/HCPCS: 71010; 80053; 82553; 84484; 85025; 85610; 85730; 93005; 96360; J7050

== ENCOUNTER 2017-03-11 06:55 | Emergency (ER) | payer OTHER, SELFPAY ==
[2017-03-11] MEDS ORDERED: Aspirin 325 MG TAB ONE (07:40)
[2017-03-11 07:44] LABS: PTT 30.6 SEC (22.9-36.1); Prothrombin Time 13.5 SEC (12.0-14.7)
[2017-03-11 07:46] LABS: #Basophils 0.1 thou/uL (0.0-0.2); #Eosinphils 0.1 thou/uL (0.0-0.7); #Lymphocytes 1.6 thou/uL (1.20-3.40); #Monocytes 0.5 thou/uL (0.11-0.59); #Neutrophils 4.6 thou/uL (1.40-6.50); %Basophils 1.3 % (0.0-1.0); %Eosinophils 1.1 % (0.0-10.0); %Lymphocytes 23.1 % (21.0-51.0); %Neutrophils 67.6 % (42.0-75.0); Hemoglobin 14.5 g/dL (12.0-16.0); Mean Corpuscular HGB CONC 33.6 g/dL (32.0-36.0); Mean Corpuscular Hemoglobin 31.8 pg (27.0-31.0); Mean Corpuscular Volume 94.5 fl (81.0-99.0); Mean Platelet Volume 6.7 fL (7.4-10.4); Platelet Count 249 thou/uL (130-400); Red Blood Cell (RBC) Count 4.56 mill/uL (4.20-5.40); White Blood Cell (WBC) Count 6.8 thou/uL (4.8-10.8)
[2017-03-11] MEDS ORDERED: Ondansetron HCl/PF 4 MG/2 ML Vial ONE (07:54)
[2017-03-11 07:56] LABS: ALT (SGPT) 15 U/L (0-55); AST (SGOT) 14 U/L (5-34); Albumin 3.9 g/dL (3.5-5.0); Alkaline Phosphatase 68 U/L (40-150); Anion Gap 15 mmol/L (10-20); BUN (Urea Nitrogen) 19 mg/dL (7.0-18.7); Bilirubin, Total 0.3 mg/dL (0.2-1.2); CK (CPK) 64 U/L (29-168); CKMB 0.9 ng/mL (0-6.6); Calc. Creatinine Clearance 0 mL/min (70-130); Calcium 8.8 mg/dL (7.8-10.44); Carbon Dioxide 20 mmol/L (22-29); Chloride 106 mmol/L (98-107); Estimated GFR-MDRD 67; Globulin 3.7 g/dL (2.4-3.5); Glucose 147 mg/dL (70-105); Potassium 4.2 mmol/L (3.5-5.1); Protein, Total 7.6 g/dL (6.0-8.3); Sodium 137 mmol/L (136-145); Troponin I Less than 0.010 ng/mL (< 0.028)
--- NOTE | 2017-03-11 08:04 | RAD ---
FRONTAL VIEW CHEST: COMPARISON: 01/08/17. INDICATION: Chest pain. FINDINGS: There is no consolidation, effusion, or pneumothorax. Cardiac silhouette is within normal limits of size. No significant interval change. IMPRESSION: Stable chest. POS: [facility]
--- NOTE | 2017-03-11 08:34 | CT ---
EXAM: NONCONTRAST HEAD CT: HISTORY: Dizziness for the last 24 hours. COMPARISON: None. TECHNIQUE: A noncontrast head CT Is performed from the skull base to the skull vertex. FINDINGS: No parenchymal hemorrhage. No extraaxial hematoma. No midline shift. Basilar cisterns are patent. Brain volume, age appropriate. Cortical banda-white matter differentiation is preserved. The ventricles and sulci are patent and symmetric. Adequate aeration of the sinuses and mastoid air cells. IMPRESSION: No acute intracranial process. POS: [facility]
[2017-03-11] MEDS ORDERED: Meclizine HCl 25 MG TAB ONE (08:35)
[2017-03-11 09:10] LABS: Bilirubin Negative (Negative); Blood, Urine Small (Negative); Clarity Cloudy (Clear); Glucose, Urine (Dipstick) Negative (Negative); Leukocyte Negative (Negative); Nitrite Positive (Negative); Protein, Urine (Dipstick) Negative (Neg-Trace); Specific Gravity, Urine 1.025 (1.002-1.036); Urobilinogen 0.2 mg/dL (0.2-1.0); pH, Urine 5.5 (5.0-9.0)
[2017-03-11 09:11] LABS: Bacteria/HPF 2+ HPF (None Seen); RBC/HPF 0-3 HPF (0-3)
[2017-03-11] MEDS ORDERED: Ciprofloxacin 500 MG TAB ONE (09:20)
== END 2017-03-11 10:20 | disposition home or self-care (01) ==
LOC: MADERS 06:55
DX: N39.0 Urinary tract infection, site not specified (principal); R42 Dizziness and giddiness; I25.10 Atherosclerotic heart disease of native coronary artery without angina pectoris; F41.9 Anxiety disorder, unspecified; F17.210 Nicotine dependence, cigarettes, uncomplicated; Z79.01 Long term (current) use of anticoagulants; Z79.82 Long term (current) use of aspirin; Z79.899 Other long term (current) drug therapy
CPT/HCPCS: 36415; 70450; 71010; 80053; 81001; 82553; 83880; 84443; 84484; 85025; 85610; 85730; 86140; 93005; 94760; 96374; J2405

== ENCOUNTER 2017-07-17 16:44 | Emergency (ER) | payer BC, SELFPAY ==
[2017-07-17] MEDS ORDERED: HYDROcodone/Acetaminophen 5/325 mg Tablet ONE (17:58)
== END 2017-07-17 20:10 | disposition home or self-care (01) ==
LOC: MADERS 16:44
DX: K08.89 Other specified disorders of teeth and supporting structures (principal); I25.10 Atherosclerotic heart disease of native coronary artery without angina pectoris; F41.9 Anxiety disorder, unspecified; F17.210 Nicotine dependence, cigarettes, uncomplicated
CPT/HCPCS: 99282

== ENCOUNTER 2017-10-20 06:47 | Emergency (ER) | payer BC ==
[2017-10-20] MEDS ORDERED: HYDROcodone/Acetaminophen 10/325 mg Tablet ONE (07:14)
[2017-10-20] MEDS ORDERED: Ibuprofen 800 MG TAB ONE (07:14)
== END 2017-10-20 07:25 | disposition home or self-care (01) ==
LOC: MADERS 06:47
DX: K02.9 Dental caries, unspecified (principal); I25.10 Atherosclerotic heart disease of native coronary artery without angina pectoris; F41.9 Anxiety disorder, unspecified; F17.210 Nicotine dependence, cigarettes, uncomplicated
CPT/HCPCS: 99282

== ENCOUNTER 2018-03-11 17:57 | Emergency (ER) | payer BC, OTHER ==
[2018-03-11] MEDS ORDERED: Nitroglycerin 2% Ointment 1 INCH/1 GM Packet ONE (18:24)
[2018-03-11] MEDS ORDERED: Ondansetron ODT 4 MG TAB ONE (18:24)
[2018-03-11 18:25] LABS: #Basophils 0.1 thou/uL (0.0-0.2); #Eosinphils 0.1 thou/uL (0.0-0.7); #Lymphocytes 2.1 thou/uL (1.20-3.40); #Monocytes 0.4 thou/uL (0.11-0.59); #Neutrophils 7.1 thou/uL (1.40-6.50); %Basophils 1.2 % (0.0-1.0); %Eosinophils 1.3 % (0.0-10.0); %Lymphocytes 21.4 % (21.0-51.0); %Monocytes 4.4 % (0.0-10.0); %Neutrophils 71.7 % (42.0-75.0); Hemoglobin 13.9 g/dL (12.0-16.0); Mean Corpuscular Volume 88.2 fl (81.0-99.0); Mean Platelet Volume 7.7 fL (7.4-10.4); Platelet Count 349 thou/uL (130-400); RBC Distribution Width 13.6 % (11.5-14.5); Red Blood Cell (RBC) Count 4.63 mill/uL (4.20-5.40); White Blood Cell (WBC) Count 9.9 thou/uL (4.8-10.8)
[2018-03-11 18:37] LABS: ALT (SGPT) 14 U/L (8-55); AST (SGOT) 12 U/L (5-34); Albumin 4.1 g/dL (3.5-5.0); Alkaline Phosphatase 79 U/L (40-150); Anion Gap 20 mmol/L (10-20); BUN (Urea Nitrogen) 14 mg/dL (7.0-18.7); Bilirubin, Total 0.4 mg/dL (0.2-1.2); Calc. Creatinine Clearance 0 mL/min (70-130); Calcium 9.2 mg/dL (7.8-10.44); Carbon Dioxide 21 mmol/L (22-29); Chloride 101 mmol/L (98-107); Estimated GFR-MDRD 55; Globulin 3.7 g/dL (2.4-3.5); Glucose 185 mg/dL (70-105); Potassium 3.8 mmol/L (3.5-5.1); Protein, Total 7.8 g/dL (6.0-8.3); Sodium 138 mmol/L (136-145)
[2018-03-11 18:39] LABS: CKMB 0.9 ng/mL (0-6.6); Troponin I Less than 0.010 ng/mL (< 0.028)
--- NOTE | 2018-03-11 19:42 | RAD ---
FRONTAL VIEW CHEST: 03/11/18 COMPARISON: 03/11/17 CLINICAL HISTORY: Chest pain. FINDINGS: Lungs are clear. No effusion or pneumothorax. The cardiac silhouette is stable. IMPRESSION: Stable chest, without focal consolidation. POS: [facility]
== END 2018-03-11 21:32 | disposition short-term general hospital (02) ==
LOC: MADERS 17:57
DX: R07.9 Chest pain, unspecified (principal); E11.9 Type 2 diabetes mellitus without complications; E03.9 Hypothyroidism, unspecified; F17.210 Nicotine dependence, cigarettes, uncomplicated; I10 Essential (primary) hypertension; I25.2 Old myocardial infarction; I25.10 Atherosclerotic heart disease of native coronary artery without angina pectoris; K21.9 Gastro-esophageal reflux disease without esophagitis; Z79.82 Long term (current) use of aspirin; Z79.899 Other long term (current) drug therapy
CPT/HCPCS: 71045; 80053; 82553; 83880; 84484; 85025; 85730; 93005; Q0162

== ENCOUNTER 2018-06-09 10:17 | Emergency (ER) | payer OTHER, SELFPAY ==
[2018-06-09] MEDS ORDERED: HYDROcodone/Acetaminophen 10/325 mg Tablet ONE (10:58)
[2018-06-09] MEDS ORDERED: Amoxicillin/Potassium Clav 875 MG TAB ONE (10:58)
== END 2018-06-09 11:08 | disposition home or self-care (01) ==
LOC: MADERS 10:17
DX: N61.0 Mastitis without abscess (principal); E11.9 Type 2 diabetes mellitus without complications; E03.9 Hypothyroidism, unspecified; K21.9 Gastro-esophageal reflux disease without esophagitis; I10 Essential (primary) hypertension; I25.10 Atherosclerotic heart disease of native coronary artery without angina pectoris; F17.210 Nicotine dependence, cigarettes, uncomplicated; Z79.82 Long term (current) use of aspirin; Z79.899 Other long term (current) drug therapy; Z79.84 Long term (current) use of oral hypoglycemic drugs
CPT/HCPCS: 99283

== ENCOUNTER 2018-08-05 07:04 | Emergency (ER) | payer OTHER, SELFPAY ==
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
== END 2018-08-05 07:45 | disposition home or self-care (01) ==
LOC: MADERS 07:04
DX: S43.401A Unspecified sprain of right shoulder joint, initial encounter (principal); E11.9 Type 2 diabetes mellitus without complications; E03.9 Hypothyroidism, unspecified; K21.9 Gastro-esophageal reflux disease without esophagitis; I25.10 Atherosclerotic heart disease of native coronary artery without angina pectoris; E05.00 Thyrotoxicosis with diffuse goiter without thyrotoxic crisis or storm; F17.210 Nicotine dependence, cigarettes, uncomplicated; F41.9 Anxiety disorder, unspecified; Z79.82 Long term (current) use of aspirin; Z79.899 Other long term (current) drug therapy; Z79.84 Long term (current) use of oral hypoglycemic drugs

== ENCOUNTER 2018-11-20 16:43 | Emergency (ER) | payer OTHER, SELFPAY | END 2018-11-20 17:40 | disposition home or self-care (01) | LOC: MADERS 16:43 | DX: J20.9 Acute bronchitis, unspecified (principal); E03.9 Hypothyroidism, unspecified; E11.9 Type 2 diabetes mellitus without complications; I10 Essential (primary) hypertension; I25.10 Atherosclerotic heart disease of native coronary artery without angina pectoris; F17.210 Nicotine dependence, cigarettes, uncomplicated; Z79.899 Other long term (current) drug therapy; Z79.84 Long term (current) use of oral hypoglycemic drugs; Z79.82 Long term (current) use of aspirin | CPT/HCPCS: 94640; J7620 ==

== ENCOUNTER 2018-12-01 15:01 | Emergency (ER) | payer OTHER | END 2018-12-01 18:30 | disposition home or self-care (01) | LOC: MADERS 15:01 | DX: J02.9 Acute pharyngitis, unspecified (principal); E03.9 Hypothyroidism, unspecified; I10 Essential (primary) hypertension; I25.10 Atherosclerotic heart disease of native coronary artery without angina pectoris; F17.200 Nicotine dependence, unspecified, uncomplicated; Z79.899 Other long term (current) drug therapy; Z79.891 Long term (current) use of opiate analgesic; Z79.82 Long term (current) use of aspirin | CPT/HCPCS: 87081; 87430; 99283 ==

== ENCOUNTER 2019-02-23 19:17 | Emergency (ER) | payer OTHER ==
[2019-02-23] MEDS ORDERED: Aspirin Chewable 81 MG TAB ONE (19:52)
[2019-02-23 20:07] LABS: #Basophils 0.1 thou/uL (0.0-0.2); #Eosinphils 0.1 thou/uL (0.0-0.7); #Lymphocytes 2.1 thou/uL (1.20-3.40); #Monocytes 0.6 thou/uL (0.11-0.59); #Neutrophils 6.2 thou/uL (1.40-6.50); %Basophils 1.1 % (0.0-1.0); %Eosinophils 1.2 % (0.0-10.0); %Monocytes 6.3 % (0.0-10.0); %Neutrophils 68.5 % (42.0-75.0); Hemoglobin 14.1 g/dL (12.0-16.0); Mean Corpuscular HGB CONC 32.8 g/dL (32.0-36.0); Mean Corpuscular Hemoglobin 28.9 pg (27.0-31.0); Mean Corpuscular Volume 88.2 fL (78.0-98.0); Mean Platelet Volume 6.9 fL (7.4-10.4); Platelet Count 344 thou/uL (130-400); RBC Distribution Width 12.7 % (11.5-14.5); Red Blood Cell (RBC) Count 4.86 mill/uL (4.20-5.40); White Blood Cell (WBC) Count 9.1 thou/uL (4.8-10.8)
[2019-02-23] MEDS ORDERED: Lorazepam 2 MG/ML VIAL ONE (20:18)
[2019-02-23 20:21] LABS: ALT (SGPT) 12 U/L (8-55); AST (SGOT) 10 U/L (5-34); Albumin 4.4 g/dL (3.5-5.0); Alkaline Phosphatase 69 U/L (40-150); Anion Gap 18 mmol/L (10-20); BUN (Urea Nitrogen) 25 mg/dL (7.0-18.7); Bilirubin, Total 0.5 mg/dL (0.2-1.2); Calc. Creatinine Clearance 0 mL/min (70-130); Calcium 9.7 mg/dL (7.8-10.44); Carbon Dioxide 24 mmol/L (22-29); Chloride 100 mmol/L (98-107); Estimated GFR-MDRD 36; Globulin 3.7 g/dL (2.4-3.5); Glucose 187 mg/dL (70-105); Potassium 3.4 mmol/L (3.5-5.1); Protein, Total 8.1 g/dL (6.0-8.3); Sodium 139 mmol/L (136-145)
--- NOTE | 2019-02-23 20:38 | RAD ---
CHEST ONE VIEW: History: Dyspnea. Comparison: 03-11-18 FINDINGS: Cardiac silhouette is magnified by projection. Pulmonary vasculature is unremarkable. Mediastinum is midline. Subtle parenchymal opacity projects over the left posterior lung base, not obscuring the hem idiaphragm or left cardiac margin. No evidence of pneumothorax. IMPRESSION: Mild left posterior basilar parenchymal opacity may represent atelectasis or infiltrate. Clinical cor relation regarding other signs and symptoms of left posterior basilar pneumonitis is required. POS: [facility]
== END 2019-02-23 21:18 | disposition short-term general hospital (02) ==
LOC: MADERS 19:17
DX: R07.9 Chest pain, unspecified (principal); R79.89 Other specified abnormal findings of blood chemistry; E03.9 Hypothyroidism, unspecified; I10 Essential (primary) hypertension; I25.10 Atherosclerotic heart disease of native coronary artery without angina pectoris; F17.200 Nicotine dependence, unspecified, uncomplicated; Z79.891 Long term (current) use of opiate analgesic; Z79.51 Long term (current) use of inhaled steroids; Z79.899 Other long term (current) drug therapy; Z79.82 Long term (current) use of aspirin; Z79.84 Long term (current) use of oral hypoglycemic drugs
CPT/HCPCS: 36415; 71045; 80053; 83880; 84484; 85025; 96374; J2060

== ENCOUNTER 2019-10-13 13:48 | Emergency (ER) | payer OTHER, SELFPAY ==
[2019-10-13 14:35] LABS: Pregnancy Test - Urine (BHCG) Negative (Negative); Pregu Control Background? CLEAR/WHITE (CLR/WHITE); Pregu Control Bar Appear? YES (CONTROL BAR); Specific Gravity 1.024 (1.002-1.036)
--- NOTE | 2019-10-13 14:52 | RAD ---
EXAM: Two views chest PROVIDED CLINICAL HISTORY: Fever, cough, and rales at bases. COMPARISON: 02/23/2019 FINDINGS: Cardiac silhouette and pulmonary vasculature are within normal limits. The lungs are clear on today' s examination. The minimal patchy density at the left lung base on the prior study is not seen. The osseous structures have a normal appearance. IMPRESSION: No acute cardiopulmonary process.
[2019-10-13] MEDS ORDERED: Benzonatate 100 MG CAP ONE ×2 (15:01→15:02)
[2019-10-13] MEDS ORDERED: Azithromycin 250 MG TAB ONE (15:01)
[2019-10-13] MEDS ORDERED: predniSONE 20 MG TAB ONE (15:04)
== END 2019-10-13 15:18 | disposition home or self-care (01) ==
LOC: MADERS 13:48
DX: J18.9 Pneumonia, unspecified organism (principal); J02.9 Acute pharyngitis, unspecified; E11.9 Type 2 diabetes mellitus without complications; I10 Essential (primary) hypertension; I25.10 Atherosclerotic heart disease of native coronary artery without angina pectoris; I25.2 Old myocardial infarction; Z95.5 Presence of coronary angioplasty implant and graft; Z87.891 Personal history of nicotine dependence; Z79.01 Long term (current) use of anticoagulants; Z79.82 Long term (current) use of aspirin; Z79.899 Other long term (current) drug therapy
CPT/HCPCS: 71046; 81025; 87081; 87430; 87804; J7512

== ENCOUNTER 2019-12-30 16:24 | Emergency (ER) | payer OTHER, SELFPAY ==
[2019-12-30 16:56] LABS: Bilirubin Negative (Negative); Blood, Urine Small (Negative); Clarity Clear (Clear); Glucose, Urine (Dipstick) Negative (Negative); Leukocyte Trace (Negative); Nitrite Positive (Negative); Protein, Urine (Dipstick) Negative (Neg-Trace); Urobilinogen 0.2 mg/dL (Less than 2)
[2019-12-30 17:04] LABS: RBC/HPF 0-3 HPF (0-3); Squamous Epithelial 0-3 HPF (0-3)
[2019-12-30 17:05] LABS: Bacteria/HPF 1+ HPF (None Seen)
[2019-12-30] MEDS ORDERED: Nitrofurantoin Monohyd/M-Cryst 100 MG CAP ONE (17:13)
== END 2019-12-30 17:23 | disposition home or self-care (01) ==
LOC: MADERS 16:24
DX: N39.0 Urinary tract infection, site not specified (principal); E78.5 Hyperlipidemia, unspecified; E78.00 Pure hypercholesterolemia, unspecified; E11.9 Type 2 diabetes mellitus without complications; I10 Essential (primary) hypertension; I25.10 Atherosclerotic heart disease of native coronary artery without angina pectoris; I25.2 Old myocardial infarction; F17.210 Nicotine dependence, cigarettes, uncomplicated; Z79.84 Long term (current) use of oral hypoglycemic drugs; Z79.82 Long term (current) use of aspirin; Z79.51 Long term (current) use of inhaled steroids; Z79.899 Other long term (current) drug therapy; Z79.02 Long term (current) use of antithrombotics/antiplatelets
CPT/HCPCS: 81001; 99284

== ENCOUNTER 2019-12-31 12:37 | Emergency (ER) | payer SELFPAY ==
[2019-12-31] MEDS ORDERED: cefTRIAXone\\ROCEPHIN 1 GM VIAL ONE (13:18)
[2019-12-31] MEDS ORDERED: Lidocaine 1% 20 ML MDV ONE (13:20)
--- NOTE | 2019-12-31 13:58 | RAD ---
CHEST TWO VIEWS: 12/31/2019 PROVIDED CLINICAL HISTORY: Shortness of breath and cough. COMPARISON: 10/13/2019 FINDINGS: The cardiac and mediastinal silhouette is within normal limits. No focal consolidation, pleural fluid or pneumothorax apparent. IMPRESSION: No evidence for an acute cardiopulmonary process. POS: [facility]
== END 2019-12-31 14:15 | disposition home or self-care (01) ==
LOC: MADERS 12:37
DX: N12 Tubulo-interstitial nephritis, not specified as acute or chronic (principal); J20.8 Acute bronchitis due to other specified organisms; E78.5 Hyperlipidemia, unspecified; E11.9 Type 2 diabetes mellitus without complications; I10 Essential (primary) hypertension; I25.10 Atherosclerotic heart disease of native coronary artery without angina pectoris; I25.2 Old myocardial infarction; F17.210 Nicotine dependence, cigarettes, uncomplicated; Z79.84 Long term (current) use of oral hypoglycemic drugs; Z79.82 Long term (current) use of aspirin; Z79.899 Other long term (current) drug therapy
CPT/HCPCS: 71046; 87804; 96372; J0696; J2001

== ENCOUNTER 2020-01-26 19:45 | Emergency (ER) | payer SELFPAY ==
[2020-01-26] MEDS ORDERED: Acetaminophen 500 MG TAB ONE (20:25)
[2020-01-26 20:29] LABS: Bilirubin Small (Negative); Blood, Urine Trace (Negative); Clarity Clear (Clear); Glucose, Urine (Dipstick) Negative (Negative); Leukocyte Negative (Negative); Nitrite Negative (Negative); Protein, Urine (Dipstick) Negative (Neg-Trace); Urobilinogen 0.2 mg/dL (Less than 2)
[2020-01-26 20:32] LABS: RBC/HPF 0-3 HPF (0-3); WBC/HPF 0-3 HPF (0-3)
[2020-01-26 20:33] LABS: Bacteria/HPF Rare-Few HPF (None Seen); Mucous/LPF 4+ LPF (<2+)
== END 2020-01-26 20:46 | disposition home or self-care (01) ==
LOC: MADERS 19:45
DX: B34.9 Viral infection, unspecified (principal); E78.5 Hyperlipidemia, unspecified; E78.00 Pure hypercholesterolemia, unspecified; I10 Essential (primary) hypertension; E11.9 Type 2 diabetes mellitus without complications; I25.10 Atherosclerotic heart disease of native coronary artery without angina pectoris; I25.2 Old myocardial infarction; F17.210 Nicotine dependence, cigarettes, uncomplicated; Z71.6 Tobacco abuse counseling; Z79.02 Long term (current) use of antithrombotics/antiplatelets; Z79.82 Long term (current) use of aspirin; Z79.84 Long term (current) use of oral hypoglycemic drugs; Z79.51 Long term (current) use of inhaled steroids; Z79.899 Other long term (current) drug therapy
CPT/HCPCS: 81003; 81015; 87086; 99406

== ENCOUNTER 2020-02-23 04:27 | Emergency (ER) | payer OTHER, SELFPAY ==
[2020-02-23 04:53] LABS: Bilirubin Negative (Negative); Blood, Urine Moderate (Negative); Clarity Slightly Cloudy (Clear); Glucose, Urine (Dipstick) Negative (Negative); Leukocyte Large (Negative); Nitrite Positive (Negative); Protein, Urine (Dipstick) 100 mg/dL (Neg-Trace); Urobilinogen 0.2 mg/dL (Less than 2)
[2020-02-23 04:58] LABS: Bacteria/HPF 3+ HPF (None Seen); Squamous Epithelial 0-3 HPF (0-3); WBC/HPF 21-50 HPF (0-3)
[2020-02-23 04:59] LABS: Mucous/LPF 1+ LPF (<2+); Pregnancy Test - Urine (BHCG) Negative (Negative); Specific Gravity 1.015 (1.002-1.036)
[2020-02-23 05:00] LABS: Pregu Control Background? CLEAR/WHITE (CLR/WHITE); Pregu Control Bar Appear? YES (CONTROL BAR)
[2020-02-23] MEDS ORDERED: Ciprofloxacin 500 MG TAB ONE (05:08)
== END 2020-02-23 05:19 | disposition home or self-care (01) ==
LOC: MADERS 04:27
DX: N39.0 Urinary tract infection, site not specified (principal); J44.9 Chronic obstructive pulmonary disease, unspecified; E78.5 Hyperlipidemia, unspecified; E78.00 Pure hypercholesterolemia, unspecified; E11.9 Type 2 diabetes mellitus without complications; I10 Essential (primary) hypertension; I25.10 Atherosclerotic heart disease of native coronary artery without angina pectoris; I25.2 Old myocardial infarction; F17.210 Nicotine dependence, cigarettes, uncomplicated; Z79.82 Long term (current) use of aspirin; Z79.84 Long term (current) use of oral hypoglycemic drugs; Z79.899 Other long term (current) drug therapy
CPT/HCPCS: 81003; 81015; 81025; 99283

== ENCOUNTER 2020-03-13 19:13 | Emergency (ER) | payer OTHER, SELFPAY ==
[2020-03-13] MEDS ORDERED: Ketorolac Tromethamine 30 MG/ML VIAL ONE (19:41)
[2020-03-13] MEDS ORDERED: Cyclobenzaprine 10 MG TAB ONE (19:41)
--- NOTE | 2020-03-13 21:12 | RAD ---
FRONTAL RADIOGRAPH PELVIS: Date: 03-13-2020 Comparison: None History: Injury FINDINGS: There is no widening of the sacroiliac joints of the pubic symphysis. The pelvic ring is intact. The femoral heads project normally over their respective acetabulum. No displaced fracture is seen. IMPRESSION: No acute fracture. POS: [facility]
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
== END 2020-03-13 21:05 | disposition home or self-care (01) ==
LOC: MADERS 19:13
DX: S30.0XXA Contusion of lower back and pelvis, initial encounter (principal); I10 Essential (primary) hypertension; E78.5 Hyperlipidemia, unspecified; E78.00 Pure hypercholesterolemia, unspecified; E11.9 Type 2 diabetes mellitus without complications; I25.10 Atherosclerotic heart disease of native coronary artery without angina pectoris; F17.210 Nicotine dependence, cigarettes, uncomplicated; I25.2 Old myocardial infarction; Z79.82 Long term (current) use of aspirin; Z79.84 Long term (current) use of oral hypoglycemic drugs; Z79.899 Other long term (current) drug therapy; W17.89XA Other fall from one level to another, initial encounter
CPT/HCPCS: 72170; 72220; 96374; J1885

== ENCOUNTER 2021-01-09 20:47 | Emergency (ER) | payer OTHER, SELFPAY ==
[2021-01-09 21:40] LABS: #Basophils 0.2 thou/uL (0.0-0.2); #Eosinphils 0.2 thou/uL (0.0-0.7); #Lymphocytes 3.4 thou/uL (1.20-3.40); #Monocytes 0.6 thou/uL (0.11-0.59); #Neutrophils 6.8 thou/uL (1.40-6.50); %Basophils 1.6 % (0.0-1.0); %Eosinophils 1.7 % (0.0-10.0); %Lymphocytes 30.5 % (21.0-51.0); %Monocytes 5.3 % (0.0-10.0); Hemoglobin 15.3 g/dL (12.0-16.0); Mean Corpuscular HGB CONC 34.2 g/dL (32.0-36.0); Mean Corpuscular Hemoglobin 33.7 pg (27.0-31.0); Mean Corpuscular Volume 98.5 fL (78.0-98.0); Mean Platelet Volume 7.7 fL (7.4-10.4); Platelet Count 256 thou/uL (130-400); RBC Distribution Width 12.6 % (11.5-14.5); Red Blood Cell (RBC) Count 4.53 mill/uL (4.20-5.40); White Blood Cell (WBC) Count 11.2 thou/uL (4.8-10.8)
[2021-01-09 21:55] LABS: ALT (SGPT) 25 U/L (8-55); AST (SGOT) 16 U/L (5-34); Alkaline Phosphatase 81 U/L (40-110); Anion Gap 16 mmol/L (10-20); BUN (Urea Nitrogen) 16 mg/dL (7.0-18.7); Bilirubin, Total 0.2 mg/dL (0.2-1.2); Calc. Creatinine Clearance 0 mL/min (70-130); Calcium 8.4 mg/dL (7.8-10.44); Carbon Dioxide 23 mmol/L (22-29); Chloride 107 mmol/L (98-107); Globulin 3.4 g/dL (2.4-3.5); Glucose 141 mg/dL (70-105); Potassium 3.8 mmol/L (3.5-5.1); Protein, Total 7.4 g/dL (6.0-8.3); Sodium 142 mmol/L (136-145)
[2021-01-09] MEDS ORDERED: Aspirin Chewable 81 MG TAB ONE (22:29)
--- NOTE | 2021-01-09 22:36 | RAD ---
Portable frontal chest radiograph: 01/09/2021 COMPARISON: 12/31/2019 HISTORY: Cough with chest pain FINDINGS: There is nonspecific mild increased linear density in the lung bases. These findings are si milar when compared to the prior exam. No pneumothorax or pleural fluid is seen. There is no focal consolidation or alveolar edema. Heart and mediastinal contours are stable. IMPRESSION: No focal consolidation or alveolar edema.
[2021-01-10 13:45] LABS: SARS-CoV-2 PCR by NAA DETECTED (NotDetected)
== END 2021-01-09 23:02 | disposition home or self-care (01) ==
LOC: MADERS 20:47
DX: U07.1 COVID-19 (principal); R07.9 Chest pain, unspecified; E11.9 Type 2 diabetes mellitus without complications; E78.5 Hyperlipidemia, unspecified; E78.00 Pure hypercholesterolemia, unspecified; J44.9 Chronic obstructive pulmonary disease, unspecified; E06.3 Autoimmune thyroiditis; F17.210 Nicotine dependence, cigarettes, uncomplicated; I25.10 Atherosclerotic heart disease of native coronary artery without angina pectoris; I25.2 Old myocardial infarction; Z79.82 Long term (current) use of aspirin; Z79.84 Long term (current) use of oral hypoglycemic drugs; Z79.899 Other long term (current) drug therapy
CPT/HCPCS: 71045; 80053; 83880; 84443; 84484; 85025; 87635; 93005; U0003; U0005

== ENCOUNTER 2021-03-13 21:49 | Emergency (ER) | payer OTHER, SELFPAY ==
[2021-03-13] MEDS ORDERED: ALPRAZolam 0.5 MG TAB ONE (22:23)
[2021-03-13] MEDS ORDERED: predniSONE 20 MG TAB ONE (22:23)
[2021-03-13] MEDS ORDERED: Ibuprofen 800 MG TAB ONE (22:23)
== END 2021-03-13 23:29 | disposition home or self-care (01) ==
LOC: MADERS 21:49
DX: J45.901 Unspecified asthma with (acute) exacerbation (principal); F41.9 Anxiety disorder, unspecified; E78.5 Hyperlipidemia, unspecified; E78.00 Pure hypercholesterolemia, unspecified; E11.9 Type 2 diabetes mellitus without complications; I10 Essential (primary) hypertension; I25.2 Old myocardial infarction; F17.210 Nicotine dependence, cigarettes, uncomplicated; Z79.82 Long term (current) use of aspirin; Z79.84 Long term (current) use of oral hypoglycemic drugs; Z79.899 Other long term (current) drug therapy
CPT/HCPCS: 93005; 99406; J7512; J7620

== ENCOUNTER 2021-03-15 11:50 | Emergency (ER) | payer OTHER, SELFPAY | END 2021-03-15 13:00 | disposition home or self-care (01) | LOC: MADERS 11:50 | DX: S13.4XXA Sprain of ligaments of cervical spine, initial encounter (principal); J44.9 Chronic obstructive pulmonary disease, unspecified; E78.5 Hyperlipidemia, unspecified; E78.00 Pure hypercholesterolemia, unspecified; I10 Essential (primary) hypertension; I25.10 Atherosclerotic heart disease of native coronary artery without angina pectoris; I25.2 Old myocardial infarction; F17.210 Nicotine dependence, cigarettes, uncomplicated; E11.9 Type 2 diabetes mellitus without complications; X58.XXXA Exposure to other specified factors, initial encounter | CPT/HCPCS: 99283 ==

== ENCOUNTER 2021-03-27 15:19 | Emergency (ER) | payer OTHER, SELFPAY | END 2021-03-27 19:15 | disposition home or self-care (01) | LOC: MADERS 15:19 | DX: S33.5XXA Sprain of ligaments of lumbar spine, initial encounter (principal); S93.602A Unspecified sprain of left foot, initial encounter; E78.5 Hyperlipidemia, unspecified; J44.9 Chronic obstructive pulmonary disease, unspecified; I10 Essential (primary) hypertension; I25.10 Atherosclerotic heart disease of native coronary artery without angina pectoris; I25.2 Old myocardial infarction; E11.9 Type 2 diabetes mellitus without complications; E78.00 Pure hypercholesterolemia, unspecified; F17.210 Nicotine dependence, cigarettes, uncomplicated; V89.2XXA Person injured in unspecified motor-vehicle accident, traffic, initial encounter | CPT/HCPCS: 71046; 72072; 72100; 72131 ==

== ENCOUNTER 2021-10-25 11:21 | Emergency (ER) | payer OTHER ==
[2021-10-25] MEDS ORDERED: Nitroglycerin 50 MG/250 ML BOT 0 ML ONE (11:42)
[2021-10-25] MEDS ORDERED: Aspirin 325 MG TAB ONE (11:42)
[2021-10-25] MEDS ORDERED: Nitroglycerin 0.4 MG TAB 1 EACH ONE ×2 (11:43→17:44)
[2021-10-25 11:55] LABS: #Basophils 0.1 thou/uL (0.0-0.2); #Eosinphils 0.1 thou/uL (0.0-0.7); #Lymphocytes 2.2 thou/uL (1.20-3.40); #Monocytes 0.6 thou/uL (0.11-0.59); #Neutrophils 5.8 thou/uL (1.40-6.50); %Basophils 1.5 % (0.0-1.0); %Eosinophils 1.1 % (0.0-10.0); %Lymphocytes 25.1 % (21.0-51.0); %Monocytes 6.5 % (0.0-10.0); %Neutrophils 65.8 % (42.0-75.0); Hemoglobin 15.6 g/dL (12.0-16.0); Mean Corpuscular HGB CONC 34.2 g/dL (32.0-36.0); Mean Corpuscular Hemoglobin 33.7 pg (27.0-31.0); Mean Corpuscular Volume 98.6 fL (78.0-98.0); Mean Platelet Volume 7.7 fL (7.4-10.4); Platelet Count 263 thou/uL (130-400); RBC Distribution Width 12.2 % (11.5-14.5); Red Blood Cell (RBC) Count 4.64 mill/uL (4.20-5.40); White Blood Cell (WBC) Count 8.8 thou/uL (4.8-10.8)
[2021-10-25 12:08] LABS: ALT (SGPT) 15 U/L (8-55); AST (SGOT) 13 U/L (5-34); Albumin 4.3 g/dL (3.5-5.0); Alkaline Phosphatase 77 U/L (40-110); Anion Gap 16 mmol/L (10-20); BUN (Urea Nitrogen) 21 mg/dL (7.0-18.7); Bilirubin, Total 0.6 mg/dL (0.2-1.2); Calc. Creatinine Clearance 0 mL/min (70-130); Calcium 9.7 mg/dL (7.8-10.44); Carbon Dioxide 22 mmol/L (22-29); Chloride 100 mmol/L (98-107); Globulin 3.5 g/dL (2.4-3.5); Glucose 143 mg/dL (70-105); Lipase 41 U/L (8-78); Potassium 3.2 mmol/L (3.5-5.1); Protein, Total 7.8 g/dL (6.0-8.3); Sodium 135 mmol/L (136-145)
[2021-10-25] MEDS ORDERED: Nitroglycerin 2% Ointment 1 INCH/1 GM Packet ONE (12:20)
== END 2021-10-25 15:50 | disposition short-term general hospital (02) ==
LOC: MADERS 11:21
DX: R07.9 Chest pain, unspecified (principal); J44.9 Chronic obstructive pulmonary disease, unspecified; E78.5 Hyperlipidemia, unspecified; I10 Essential (primary) hypertension; I25.2 Old myocardial infarction; F17.210 Nicotine dependence, cigarettes, uncomplicated
CPT/HCPCS: 71045; 80053; 83690; 84484; 85025; 93005

== ENCOUNTER 2021-10-30 04:45 | Emergency (ER) | payer OTHER ==
[2021-10-30] MEDS ORDERED: Aspirin Chewable 81 MG TAB ONE (05:19)
[2021-10-30 05:29] LABS: #Basophils 0.1 thou/uL (0.0-0.2); #Eosinphils 0.1 thou/uL (0.0-0.7); #Monocytes 0.7 thou/uL (0.11-0.59); #Neutrophils 9.8 thou/uL (1.40-6.50); %Basophils 0.9 % (0.0-1.0); %Eosinophils 0.6 % (0.0-10.0); %Lymphocytes 21.5 % (21.0-51.0); %Monocytes 5.1 % (0.0-10.0); %Neutrophils 71.8 % (42.0-75.0); Hemoglobin 15.5 g/dL (12.0-16.0); Mean Corpuscular HGB CONC 32.6 g/dL (32.0-36.0); Mean Corpuscular Hemoglobin 32.9 pg (27.0-31.0); Mean Corpuscular Volume 100.9 fL (78.0-98.0); Mean Platelet Volume 7.6 fL (7.4-10.4); Platelet Count 264 thou/uL (130-400); RBC Distribution Width 12.6 % (11.5-14.5); Red Blood Cell (RBC) Count 4.72 mill/uL (4.20-5.40); White Blood Cell (WBC) Count 13.7 thou/uL (4.8-10.8)
[2021-10-30 05:55] LABS: ALT (SGPT) 17 U/L (8-55); AST (SGOT) 18 U/L (5-34); Albumin 4.4 g/dL (3.5-5.0); Alkaline Phosphatase 78 U/L (40-110); Anion Gap 16 mmol/L (10-20); BUN (Urea Nitrogen) 15 mg/dL (7.0-18.7); Bilirubin, Total 0.5 mg/dL (0.2-1.2); Calc. Creatinine Clearance 0 mL/min (70-130); Calcium 9.2 mg/dL (7.8-10.44); Carbon Dioxide 23 mmol/L (22-29); Chloride 103 mmol/L (98-107); Globulin 3.6 g/dL (2.4-3.5); Glucose 98 mg/dL (70-105); Magnesium 1.7 mg/dL (1.6-2.6); Potassium 3.2 mmol/L (3.5-5.1); Sodium 139 mmol/L (136-145)
[2021-10-30 06:06] LABS: Bilirubin Small (Negative); Blood, Urine Small (Negative); Clarity Clear (Clear); Glucose, Urine (Dipstick) Negative (Negative); Ketone, Urine 15 mg/dL (Negative); Leukocyte Negative (Negative); Nitrite Negative (Negative); Protein, Urine (Dipstick) 30 mg/dL (Neg-Trace); Specific Gravity, Urine 1.025 (1.005-1.030); Urobilinogen 0.2 mg/dL (Less than 2)
[2021-10-30] MEDS ORDERED: Potassium Chloride 20 MEQ TAB ONE (06:13)
[2021-10-30 06:18] LABS: RBC/HPF 0-3 HPF (0-3); Squamous Epithelial 0-3 HPF (0-3); WBC/HPF 0-3 HPF (0-3)
[2021-10-30 06:19] LABS: Amphetamine Not Detected (NotDetected); Bacteria/HPF Rare-Few HPF (None Seen); Barbiturates Screen Not Detected (NotDetected); Benzodiazepine Screen Not Detected (NotDetected); Cocaine Metabolite Screen Not Detected (NotDetected); Medtox Control Line Valid? VALID (VALID); Methadone Not Detected (NotDetected); Methamphetamine Not Detected (NotDetected); Opiate Screen Not Detected (NotDetected); Oxycodone Screen Not Detected (NotDetected); Phencyclidine (PCP) Not Detected (NotDetected); THC/Cannabinoid Screen Detected (NotDetected); Tricyclic Screen Not Detected (NotDetected)
[2021-10-30 12:21] LABS: Free T4 (Free Thyroxine) 1.11 ng/dL (0.70-1.48)
== END 2021-10-30 06:25 | disposition home or self-care (01) ==
LOC: MADERS 04:45
DX: E86.0 Dehydration (principal); E87.6 Hypokalemia; R07.89 Other chest pain; F17.210 Nicotine dependence, cigarettes, uncomplicated; J44.9 Chronic obstructive pulmonary disease, unspecified; I10 Essential (primary) hypertension; E11.9 Type 2 diabetes mellitus without complications; E78.5 Hyperlipidemia, unspecified; E78.00 Pure hypercholesterolemia, unspecified; I25.10 Atherosclerotic heart disease of native coronary artery without angina pectoris; I25.2 Old myocardial infarction; E06.3 Autoimmune thyroiditis; Z95.5 Presence of coronary angioplasty implant and graft; Z79.82 Long term (current) use of aspirin; Z79.84 Long term (current) use of oral hypoglycemic drugs; Z79.899 Other long term (current) drug therapy
CPT/HCPCS: 71045; 80053; 80306; 81003; 81015; 83735; 83880; 84439; 84443; 84481; 84484; 85025; 93005

== ENCOUNTER 2022-08-27 17:49 | Emergency (ER) | payer OTHER, SELFPAY ==
[2022-08-27] MEDS ORDERED: Bupivacaine PF 0.5% 30 ML VIAL ONE (18:19)
[2022-08-27] MEDS ORDERED: Lidocaine 1% (PF) 30 ML VIAL ONE (18:19)
[2022-08-27] MEDS ORDERED: Boostrix 0.5 ML (Tdap) VIAL (>/=7 yrs of age) ONE (18:20)
== END 2022-08-27 18:35 | disposition home or self-care (01) ==
LOC: MADERS 17:49
DX: S01.511A Laceration without foreign body of lip, initial encounter (principal); I10 Essential (primary) hypertension; E78.00 Pure hypercholesterolemia, unspecified; I25.10 Atherosclerotic heart disease of native coronary artery without angina pectoris; I25.2 Old myocardial infarction; J44.9 Chronic obstructive pulmonary disease, unspecified; E06.3 Autoimmune thyroiditis; E11.9 Type 2 diabetes mellitus without complications; F17.210 Nicotine dependence, cigarettes, uncomplicated; W18.09XA Striking against other object with subsequent fall, initial encounter; Y92.89 Other specified places as the place of occurrence of the external cause; Z95.5 Presence of coronary angioplasty implant and graft; Z79.82 Long term (current) use of aspirin; Z79.84 Long term (current) use of oral hypoglycemic drugs; Z79.899 Other long term (current) drug therapy; Z23 Encounter for immunization
CPT/HCPCS: 12011; 90471; 90715; J2001; S0020

== ENCOUNTER 2025-09-06 20:36 | Emergency (ER) | payer OTHER, SELFPAY ==
[2025-09-06] MEDS ORDERED: Cephalexin 500 MG CAP ONE (21:27)
[2025-09-06] MEDS ORDERED: Clindamycin 150 MG CAP ONE (21:27)
== END 2025-09-06 21:49 | disposition home or self-care (01) ==
LOC: MADERS 20:36
DX: N61.1 Abscess of the breast and nipple (principal); E11.9 Type 2 diabetes mellitus without complications; J44.9 Chronic obstructive pulmonary disease, unspecified; I10 Essential (primary) hypertension; I25.10 Atherosclerotic heart disease of native coronary artery without angina pectoris; I25.2 Old myocardial infarction; F17.290 Nicotine dependence, other tobacco product, uncomplicated
CPT/HCPCS: 87070; 87205; 99283